=== PATIENT | male | born 1940 | race Caucasian/White ===

== ENCOUNTER 2017-04-22 05:39 | Inpatient (IN) ==
[2017-04-22] MEDS ORDERED: ALVIMOPAN 12 MG CAPSULE PO ONE (06:00)
[2017-04-22] MEDS ORDERED: SODIUM PHOSPHATE ENEMA 133 ML BOTTLE RECTAL ONE ×2 (06:00→06:27)
[2017-04-22] MEDS ORDERED: cefTRIAXone 1,000 MG VIAL ONE (06:27)
[2017-04-22] MEDS ORDERED: SODIUM CHLORIDE 0.9% 50 ML IV ONE (06:27)
[2017-04-22] MEDS ORDERED: ALVIMOPAN 12 MG CAPSULE ONE (06:34)
[2017-04-22] MEDS ORDERED: ALBUTEROL/IPRATROPIUM 3 ML NEB RESP TX STA (06:40)
[2017-04-22] MEDS ORDERED: FAMOTIDINE 20 MG TABLET PO ONE (06:47)
[2017-04-22] MEDS ORDERED: ALBUTEROL 2.5 MG/3 ML NEB RESP TX ONE (06:47)
[2017-04-22] MEDS ORDERED: DIAZEPAM 5 MG TABLET PO ONE (06:47)
[2017-04-22] MEDS: LACTATED RINGERS 1,000 ML IV SCH ×3 (07:07→12:41)
[2017-04-22 08:23] LABS: Apearance,Urine Slightly Hazy (Clear); Bacteria,Urine Occasional /HPF (Few); Bilirubin,Urine Negative (Negative); Blood, Urine Moderate mg/dL (Negative); Glucose,Urine (UA) Negative (Negative); Ketones,Urine Negative (Negative); Mucus,Urine Occasional /LPF (Occasional); Nitrite,Urine Negative (Negative); Protein,Urine Negative; RBC,Urine 59 /HPF (0-4); Squamous Epithelial Cell,Urine Occasional /HPF (0-10); Urine Color Yellow (Yellow); Urine Specific Gravity 1.015 (1.001-1.035); Urine Urobilinogen < 2.0 EU/DL (0.2-1.0); WBC,Urine 7 /HPF (0-6)
[2017-04-22] MEDS: ePHEDrine 50 MG/ML AMP IV SCH ×8 (12:25→16:58)
[2017-04-22] MEDS ORDERED: ePHEDrine 50 MG/ML AMP ONE (12:27)
[2017-04-22] MEDS ORDERED: HYDROmorphone PCA 30 MG/30 ML SYRINGE IV SCH (12:30)
[2017-04-22] MEDS ORDERED: PROPOFOL 200 MG/20 ML VIAL IV ONE (12:31)
[2017-04-22] MEDS ORDERED: DESFLURANE 1 UNIT/15 MINUTE INH ONE (12:31)
[2017-04-22] MEDS ORDERED: LACTATED RINGERS 1,000 ML IV ONE (12:32)
[2017-04-22] MEDS ORDERED: ACETAMINOPHEN 1,000 MG/100 ML VIAL IV ONE (12:32)
[2017-04-22] MEDS ORDERED: fentaNYL 100 MCG/2 ML VIAL ONE (12:32)
[2017-04-22] MEDS ORDERED: NEOSTIGMINE 10 MG/10 ML VIAL ONE (12:32)
[2017-04-22] MEDS ORDERED: ROCURONIUM 100 MG/10 ML VIAL IV ONE (12:32)
[2017-04-22] MEDS ORDERED: MIDAZOLAM 2 MG/2 ML VIAL ONE (12:32)
[2017-04-22] MEDS ORDERED: ONDANSETRON 4 MG/2 ML VIAL ONE ×2 (12:32→12:33)
[2017-04-22] MEDS ORDERED: DEXAMETHASONE 10 MG/1 ML VIAL ONE (12:32)
[2017-04-22] MEDS ORDERED: GLYCOPYRROLATE 0.4 MG/2 ML VIAL ONE (12:32)
[2017-04-22] MEDS: ONDANSETRON 4 MG/2 ML VIAL IV PRN (12:40)
[2017-04-22] MEDS: SODIUM CHLORIDE 0.9% 1,000 ML IV SCH (14:53)
[2017-04-22] MEDS: OXYBUTYNIN XL 10 MG TABLET PO SCH (20:40)
[2017-04-22] MEDS: ALVIMOPAN 12 MG CAPSULE PO SCH (20:40)
[2017-04-23] MEDS: ONDANSETRON 4 MG/2 ML VIAL IV PRN (01:48)
[2017-04-23 06:33] LABS: Basophils % 0.1 % (0.0-0.8); Hematocrit 37.5 VOL% (42.0-52.0); Hemoglobin 12.7 GM/DL (14.0-18.0); Immature Granulocytes % 0.5 %; Immature Granulocytes Absolute 0.07 #; Lymphocytes % 6.7 % (21.2-54.2); Mean Corpuscular HGB Conc 33.9 GM/DL (32-36); Mean Corpuscular Hemoglobin 33 PG (27-34); Mean Corpuscular Volume 95.9 FL (87-102); Mean Platelet Volume 10.9 FL (9.6-12.0); Monocytes % 6.3 % (1.7-12.7); Neutrophils # 13.3 10*3/uL (1.4-7.4); Neutrophils % 86.4 % (38.7-73.9); Platelet Count 210 T/CUMM (130-400); Red Blood Count 3.91 MC/CUMM (3.8-5.5); Red Cell Distribution Width 13.1 % (9.3-17.3); White Blood Count 15.3 T/CUMM (4-12)
[2017-04-23 07:12] LABS: Calcium 8.3 MG/DL (8.5-10.1); Osmolality,Calculated 278.5 MOS/KG (273-304); Potassium 4.7 MMOL/L (3.5-5.1)
[2017-04-23] MEDS: ALVIMOPAN 12 MG CAPSULE PO SCH ×2 (08:37→20:34)
[2017-04-23] MEDS: OXYBUTYNIN XL 10 MG TABLET PO SCH (08:37)
[2017-04-23] MEDS: SODIUM CHLORIDE 0.9% 1,000 ML IV SCH (08:38)
[2017-04-23] MEDS ORDERED: MAGNESIUM HYDROXIDE SUSP 30 ML UDCUP PO PRN (11:01)
[2017-04-23] MEDS ORDERED: ROSUVASTATIN 10 MG TABLET PO SCH (11:30)
[2017-04-23] MEDS: FOLIC ACID 0.4 MG TABLET PO SCH (11:36)
[2017-04-23] MEDS: amLODIPine 10 MG TABLET PO SCH (11:36)
[2017-04-23] MEDS: MULTIVITAMIN (CENTRUM) TABLET PO SCH (11:37)
[2017-04-23] MEDS: oxyCODONE/ACETAMINOPHEN 5-325 MG TABLET PO PRN ×2 (15:58→20:34)
[2017-04-23] MEDS: MEPERIDINE 50 MG/1 ML VIAL IM PRN (23:50)
[2017-04-24] MEDS ORDERED: GLYCERIN ADULT SUPP RECTAL ONE (07:45)
[2017-04-24] MEDS: MEPERIDINE 50 MG/1 ML VIAL IM PRN ×4 (08:00→20:30)
[2017-04-24] MEDS: ALVIMOPAN 12 MG CAPSULE PO SCH ×2 (09:40→20:30)
[2017-04-24] MEDS: MULTIVITAMIN (CENTRUM) TABLET PO SCH (09:40)
[2017-04-24] MEDS: ROSUVASTATIN 20 MG TABLET PO SCH (09:40)
[2017-04-24] MEDS: OXYBUTYNIN XL 10 MG TABLET PO SCH (09:40)
[2017-04-24] MEDS: FOLIC ACID 0.4 MG TABLET PO SCH (09:40)
[2017-04-24] MEDS: oxyCODONE/ACETAMINOPHEN 5-325 MG TABLET PO PRN ×2 (09:40→22:36)
[2017-04-24] MEDS: amLODIPine 10 MG TABLET PO SCH (09:43)
[2017-04-25] MEDS: MEPERIDINE 50 MG/1 ML VIAL IM PRN (00:37)
[2017-04-25 05:57] LABS: Basophils % 0.3 % (0.0-0.8); Eosinophils # 0.3 10*3/uL (0.0-0.87); Eosinophils % 2.3 % (0.00-10.9); Hemoglobin 12.9 GM/DL (14.0-18.0); Immature Granulocytes % 0.3 %; Immature Granulocytes Absolute 0.04 #; Lymphocytes # 1.4 10*3/uL (1.4-4.0); Lymphocytes % 11.6 % (21.2-54.2); Mean Corpuscular HGB Conc 34.9 GM/DL (32-36); Mean Corpuscular Hemoglobin 33 PG (27-34); Mean Corpuscular Volume 94.9 FL (87-102); Monocytes # 1.2 10*3/uL (0.11-0.8); Monocytes % 9.5 % (1.7-12.7); Neutrophils # 9.4 10*3/uL (1.4-7.4); Platelet Count 180 T/CUMM (130-400); Red Cell Distribution Width 13.1 % (9.3-17.3); White Blood Count 12.4 T/CUMM (4-12)
[2017-04-25 06:30] LABS: Calcium 8.8 MG/DL (8.5-10.1); Magnesium 2.5 MG/DL (1.8-2.4); Osmolality,Calculated 272.1 MOS/KG (273-304); Potassium 4.4 MMOL/L (3.5-5.1)
[2017-04-25] MEDS: oxyCODONE/ACETAMINOPHEN 5-325 MG TABLET PO PRN ×2 (06:37→10:36)
[2017-04-25] MEDS: ALVIMOPAN 12 MG CAPSULE PO SCH (09:42)
[2017-04-25] MEDS: OXYBUTYNIN XL 10 MG TABLET PO SCH (09:42)
[2017-04-25] MEDS: ROSUVASTATIN 20 MG TABLET PO SCH (09:42)
[2017-04-25] MEDS: amLODIPine 10 MG TABLET PO SCH (09:42)
[2017-04-25] MEDS: MULTIVITAMIN (CENTRUM) TABLET PO SCH (09:42)
[2017-04-25] MEDS: FOLIC ACID 0.4 MG TABLET PO SCH (09:42)
[2017-04-25 12:16] VITALS: BP 120/78
== END 2017-04-25 12:40 | disposition home or self-care (01) | DRG 707 ==
LOC: N.OR 05:39 → N.SDSINP 05:40 → N.5E 09:30
PROVIDERS: ADMIT Urology; ATTEND Urology

== ENCOUNTER 2018-09-12 10:19 | Inpatient (IN) ==
[2018-09-12 11:40] LABS: Basophils # 0.1 10*3/uL (0.0-0.2); Basophils % 0.7 % (0.0-0.8); Eosinophils # 0.8 10*3/uL (0.0-0.87); Hematocrit 39.3 VOL% (42.0-52.0); Hemoglobin 12.6 GM/DL (14.0-18.0); Immature Granulocytes % 0.4 %; Immature Granulocytes Absolute 0.04 #; Lymphocytes # 0.7 10*3/uL (1.4-4.0); Lymphocytes % 5.8 % (21.2-54.2); Mean Corpuscular HGB Conc 32.1 GM/DL (32-36); Mean Corpuscular Volume 94.5 FL (87-102); Mean Platelet Volume 9.3 FL (9.6-12.0); Monocytes % 8.5 % (1.7-12.7); Neutrophils % 77.6 % (38.7-73.9); Platelet Count 371 T/CUMM (130-400); Red Blood Count 4.16 MC/CUMM (3.8-5.5); Red Cell Distribution Width 13.1 % (9.3-17.3); White Blood Count 11.2 T/CUMM (4-12)
[2018-09-12 11:46] LABS: PT Patient Result 10.7 SECS; Partial Thromboplastin Time 35.1 SECS (0-40)
[2018-09-12 11:56] LABS: Alanine Aminotransferase 13 U/L (16-61); Alkaline Phosphatase 158 U/L (45-117); Aspartate Amino Transferase 19 U/L (0-37); Blood Urea Nitrogen 26 MG/DL (7-18); Calcium 8.3 MG/DL (8.5-10.1); Glucose 111 MG/DL (74-106); Total Protein 7.2 G/DL (6.4-8.3); Troponin I < 0.015 NG/ML (0.00-0.045)
[2018-09-12] MEDS ORDERED: methylPREDNISolone SOD SUC 125 MG/2 ML VIAL IV STA (12:33)
[2018-09-12] MEDS ORDERED: ALBUTEROL/IPRATROPIUM 3 ML NEB RESP TX STA (12:33)
[2018-09-12 14:35] LABS: Thyroid Stimulating Hormone 3.7 uIU/ml (0.358-3.74)
[2018-09-12 14:49] LABS: Risk Ratio 4.38; VLDL CHOLESTEROL 18.6 MG/DL
[2018-09-12] MEDS: ENOXAPARIN 40 MG/0.4 ML SYRINGE SUBCUT SCH (21:28)
[2018-09-13 04:39] LABS: Basophils % 0.1 % (0.0-0.8); Hematocrit 36.4 VOL% (42.0-52.0); Hemoglobin 11.9 GM/DL (14.0-18.0); Immature Granulocytes % 0.3 %; Immature Granulocytes Absolute 0.03 #; Lymphocytes # 0.5 10*3/uL (1.4-4.0); Lymphocytes % 4.9 % (21.2-54.2); Mean Corpuscular HGB Conc 32.7 GM/DL (32-36); Mean Corpuscular Volume 91.7 FL (87-102); Mean Platelet Volume 9.5 FL (9.6-12.0); Monocytes % 1.3 % (1.7-12.7); Neutrophils % 93.4 % (38.7-73.9); Platelet Count 394 T/CUMM (130-400); Red Blood Count 3.97 MC/CUMM (3.8-5.5); Red Cell Distribution Width 12.8 % (9.3-17.3)
[2018-09-13 05:06] LABS: Albumin 1.7 G/DL (3.4-5.0); Bilirubin,Total 0.6 MG/DL (0.2-1.0); Calcium 8.6 MG/DL (8.5-10.1); Osmolality,Calculated 277.1 MOS/KG (273-304); Total Protein 6.9 G/DL (6.4-8.3)
[2018-09-13 05:51] LABS: Lymphocytes 1 % (20-55); Platelet Estimate Normal; Segmented Neutrophils 99 % (50-85); Total Cells Counted 100
[2018-09-13] MEDS: FOLIC ACID 0.4 MG TABLET PO SCH (09:10)
[2018-09-13] MEDS: ROSUVASTATIN 20 MG TABLET PO SCH (09:11)
[2018-09-13] MEDS: amLODIPine 10 MG TABLET PO SCH (09:11)
[2018-09-13] MEDS: PANTOPRAZOLE 40 MG TABLET PO SCH (09:11)
[2018-09-13] MEDS: ASPIRIN EC 81 MG TABLET PO SCH (09:11)
[2018-09-13] MEDS: methylPREDNISolone SOD SUC 40 MG/1 ML VIAL IV SCH ×2 (12:09→21:39)
[2018-09-13] MEDS: MEROPENEM 1,000 MG in SODIUM CHLORIDE 0.9% 100 ML IV SCH ×3 (12:14→20:31)
[2018-09-13] MEDS: CLINDAMYCIN INJ 300 MG in PREMIX 1 EACH IV SCH ×3 (12:59→21:44)
[2018-09-13] MEDS: DOCUSATE SODIUM 100 MG CAPSULE PO PRN (17:55)
[2018-09-13] MEDS: POLYETHYLENE GLYCOL POWDER 17 GM PACK PO PRN (20:28)
[2018-09-13] MEDS: ENOXAPARIN 40 MG/0.4 ML SYRINGE SUBCUT SCH (20:29)
[2018-09-14 04:53] LABS: Basophils % 0.1 % (0.0-0.8); Hemoglobin 10.4 GM/DL (14.0-18.0); Immature Granulocytes % 0.6 %; Immature Granulocytes Absolute 0.09 #; Lymphocytes # 0.5 10*3/uL (1.4-4.0); Lymphocytes % 3.2 % (21.2-54.2); Mean Corpuscular HGB Conc 32.5 GM/DL (32-36); Mean Corpuscular Volume 92.5 FL (87-102); Mean Platelet Volume 9.8 FL (9.6-12.0); Monocytes % 2.1 % (1.7-12.7); Platelet Count 386 T/CUMM (130-400); Red Blood Count 3.46 MC/CUMM (3.8-5.5); White Blood Count 16.1 T/CUMM (4-12)
[2018-09-14 05:00] LABS: Albumin 1.8 G/DL (3.4-5.0); Bilirubin,Total 0.8 MG/DL (0.2-1.0); Total Protein 6.2 G/DL (6.4-8.3)
[2018-09-14 05:19] LABS: Band Neutrophils 1 % (0-10); Hypochromasia 1+; Lymphocytes 4 % (20-55); Ovalocytes Slight; Platelet Estimate Adequate; Segmented Neutrophils 93 % (50-85); Total Cells Counted 100
[2018-09-14] MEDS: MEROPENEM 1,000 MG in SODIUM CHLORIDE 0.9% 100 ML IV SCH ×3 (05:59→21:24)
[2018-09-14] MEDS: CLINDAMYCIN INJ 300 MG in PREMIX 1 EACH IV SCH ×3 (06:32→23:25)
[2018-09-14] MEDS: FOLIC ACID 0.4 MG TABLET PO SCH (09:21)
[2018-09-14] MEDS: DOCUSATE SODIUM 100 MG CAPSULE PO PRN (09:21)
[2018-09-14] MEDS: ASPIRIN EC 81 MG TABLET PO SCH (09:21)
[2018-09-14] MEDS: amLODIPine 10 MG TABLET PO SCH (09:21)
[2018-09-14] MEDS: ROSUVASTATIN 20 MG TABLET PO SCH (09:21)
[2018-09-14] MEDS: PANTOPRAZOLE 40 MG TABLET PO SCH (09:21)
[2018-09-14] MEDS: Nintedanib Esylate [Ofev] 150 MG PO SCH (09:22)
[2018-09-14] MEDS: methylPREDNISolone SOD SUC 40 MG/1 ML VIAL IV SCH (09:32)
[2018-09-14] MEDS ORDERED: SODIUM CHLORIDE 0.9% 1,000 ML IV ONE (09:50)
[2018-09-14] MEDS: ALBUTEROL/IPRATROPIUM 3 ML NEB RESP TX PRN ×2 (13:25→20:45)
[2018-09-14] MEDS ORDERED: MORPHINE 4 MG/1 ML VIAL IV ONE ×2 (21:00→23:58)
[2018-09-14] MEDS: ENOXAPARIN 40 MG/0.4 ML SYRINGE SUBCUT SCH (21:23)
[2018-09-15] MEDS: methylPREDNISolone SOD SUC 40 MG/1 ML VIAL IV SCH ×3 (00:19→22:15)
[2018-09-15] MEDS ORDERED: MORPHINE 4 MG/1 ML VIAL IV ONE (02:44)
[2018-09-15 03:30] LABS: ABG Base Excess -1.6 MMOL/L (-2.5-2.5); ABG HCO3 22.7 MMOL/L (20-26); ABG Oxygen Saturation 75.3 % (95-100); ABG PCO2 43.7 MM HG (35-48); ABG PH 7.351 (7.35-7.45); ABG PO2 43.7 MM HG (80-95); ABG TCO2 21.5 MMOL/L (23-27)
[2018-09-15] MEDS ORDERED: methylPREDNISolone SOD SUC 125 MG/2 ML VIAL IV ONE ×2 (03:42)
[2018-09-15] MEDS: MORPHINE 4 MG/1 ML VIAL IV PRN ×2 (03:50→19:46)
[2018-09-15 04:32] LABS: Albumin 1.8 G/DL (3.4-5.0); Bilirubin,Total 0.6 MG/DL (0.2-1.0); Osmolality,Calculated 277.2 MOS/KG (273-304); Total Protein 6.9 G/DL (6.4-8.3)
[2018-09-15] MEDS: ALBUTEROL/IPRATROPIUM 3 ML NEB RESP TX PRN (05:40)
[2018-09-15 05:43] LABS: Basophils % 0.2 % (0.0-0.8); Hematocrit 35.3 VOL% (42.0-52.0); Hemoglobin 11.8 GM/DL (14.0-18.0); Immature Granulocytes % 0.9 %; Immature Granulocytes Absolute 0.17 #; Lymphocytes # 0.5 10*3/uL (1.4-4.0); Lymphocytes % 2.4 % (21.2-54.2); Mean Corpuscular HGB Conc 33.4 GM/DL (32-36); Mean Corpuscular Volume 92.4 FL (87-102); Mean Platelet Volume 9.2 FL (9.6-12.0); Monocytes % 4.5 % (1.7-12.7); Platelet Count 394 T/CUMM (130-400); Red Blood Count 3.82 MC/CUMM (3.8-5.5); Red Cell Distribution Width 13.1 % (9.3-17.3); White Blood Count 18.5 T/CUMM (4-12)
[2018-09-15] MEDS: MEROPENEM 1,000 MG in SODIUM CHLORIDE 0.9% 100 ML IV SCH ×3 (05:45→20:18)
[2018-09-15 06:10] LABS: Hypochromasia 1+; Lymphocytes 2 % (20-55); Ovalocytes Slight; Platelet Estimate Adequate; Segmented Neutrophils 94 % (50-85); Total Cells Counted 100
[2018-09-15] MEDS: CLINDAMYCIN INJ 300 MG in PREMIX 1 EACH IV SCH ×3 (06:15→22:17)
[2018-09-15 08:30] LABS: ABG Base Excess 0.2 MMOL/L (-2.5-2.5); ABG HCO3 24.4 MMOL/L (20-26); ABG Oxygen Saturation 85.6 % (95-100); ABG PCO2 40.2 MM HG (35-48); ABG PH 7.401 (7.35-7.45); ABG TCO2 22.2 MMOL/L (23-27); Pt O2 Delivery Device Other
[2018-09-15] MEDS ORDERED: LIDOCAINE 100 MG/5 ML SYRINGE ONE (08:46)
[2018-09-15] MEDS ORDERED: PROPOFOL 200 MG/20 ML VIAL IV ONE (08:46)
[2018-09-15] MEDS ORDERED: fentaNYL 100 MCG/2 ML VIAL ONE (08:47)
[2018-09-15] MEDS ORDERED: VECURONIUM 10 MG VIAL IV ONE (08:48)
[2018-09-15] MEDS ORDERED: ETOMIDATE 40 MG/20 ML VIAL IV ONE (09:01)
[2018-09-15] MEDS ORDERED: ROCURONIUM 100 MG/10 ML VIAL IV ONE (09:01)
[2018-09-15] MEDS ORDERED: PROPOFOL 1,000 MG/100 ML BOTTLE IV ONE (09:02)
[2018-09-15] MEDS: PROPOFOL 1,000 MG/100 ML BOTTLE IV SCH ×4 (09:10→21:41)
[2018-09-15] MEDS ORDERED: DILTIAZEM 50 MG/10 ML VIAL IV ONE (09:24)
[2018-09-15 09:28] LABS: ABG Base Excess -2.7 MMOL/L (-2.5-2.5); ABG HCO3 21.9 MMOL/L (20-26); ABG Oxygen Saturation 86.5 % (95-100); ABG PCO2 62.7 MM HG (35-48); ABG PH 7.235 (7.35-7.45); ABG PO2 62.2 MM HG (80-95); ABG TCO2 23.7 MMOL/L (23-27); Pt O2 Delivery Device Ventilator
[2018-09-15 09:31] LABS: PT Patient Result 10.7 SECS; Partial Thromboplastin Time 31.7 SECS (0-40)
[2018-09-15] MEDS: ASPIRIN EC 81 MG TABLET PO SCH (09:57)
[2018-09-15] MEDS: PANTOPRAZOLE 40 MG TABLET PO SCH (09:57)
[2018-09-15] MEDS: dilTIAZem Drip 125 MG/125 ML PREMIX IV SCH (10:39)
[2018-09-15 10:41] LABS: ABG HCO3 19.4 MMOL/L (20-26); ABG Oxygen Saturation 90.4 % (95-100); ABG PCO2 63.1 MM HG (35-48); ABG PO2 73.6 MM HG (80-95); ABG TCO2 21.7 MMOL/L (23-27); Pt O2 Delivery Device Ventilator
[2018-09-15 10:43] LABS: ABG PH 7.185 (7.35-7.45)
[2018-09-15] MEDS ORDERED: SODIUM BICARBONATE 50 MEQ/50 ML VIAL IV ONE ×4 (10:48→11:40)
[2018-09-15] MEDS: ALBUTEROL/IPRATROPIUM 3 ML NEB RESP TX SCH ×4 (11:07→23:36)
[2018-09-15] MEDS: PANTOPRAZOLE 40 MG VIAL IV SCH (11:12)
[2018-09-15] MEDS: Nintedanib Esylate [Ofev] 150 MG PO SCH (11:19)
[2018-09-15] MEDS: ASPIRIN CHEW 81 MG TABLET PO SCH (11:19)
[2018-09-15] MEDS: ROSUVASTATIN 20 MG TABLET PO SCH (11:19)
[2018-09-15] MEDS: FOLIC ACID 0.4 MG TABLET PO SCH (11:20)
[2018-09-15] MEDS: amLODIPine 10 MG TABLET PO SCH (11:20)
[2018-09-15 11:35] LABS: ABG HCO3 23.6 MMOL/L (20-26); ABG Oxygen Saturation 97.9 % (95-100); ABG PCO2 58.1 MM HG (35-48); ABG PH 7.276 (7.35-7.45); ABG TCO2 24.3 MMOL/L (23-27); Pt O2 Delivery Device Ventilator
[2018-09-15] MEDS ORDERED: DEXTROSE 50% 25 GM/50 ML SYRINGE IV PRN (11:48)
[2018-09-15] MEDS ORDERED: GLUCAGON 1 MG VIAL IM PRN (11:48)
[2018-09-15 13:54] LABS: ABG Base Excess 4.9 MMOL/L (-2.5-2.5); ABG HCO3 28.8 MMOL/L (20-26); ABG Oxygen Saturation 99.8 % (95-100); ABG PCO2 45.3 MM HG (35-48); ABG PH 7.428 (7.35-7.45); ABG TCO2 26.8 MMOL/L (23-27); Pt O2 Delivery Device Ventilator
[2018-09-15] MEDS: SODIUM BICARB INJ 150 MEQ in STERILE WATER INJ 850 ML IV SCH (15:11)
[2018-09-15] MEDS: INSULIN REGULAR 100 UNIT/ML SUBCUT SCH ×2 (15:18→18:22)
[2018-09-15 16:58] LABS: Apearance,Urine Slightly Hazy (Clear); Bacteria,Urine Occasional /HPF (Few); Bilirubin,Urine Negative (Negative); Blood, Urine Moderate mg/dL (Negative); Glucose,Urine (UA) Negative (Negative); Hyaline Casts,Urine 4 /LPF (0-3); Ketones,Urine 5 mg/dL (Negative); Mucus,Urine Occasional /LPF (Occasional); Nitrite,Urine Negative (Negative); Protein,Urine 30 MG/DL; RBC,Urine 86 /HPF (0-4); Squamous Epithelial Cell,Urine Occasional /HPF (0-10); Urine Color Yellow (Yellow); Urine Specific Gravity 1.023 (1.001-1.035); WBC,Urine 42 /HPF (0-6)
[2018-09-15] MEDS: ENOXAPARIN 40 MG/0.4 ML SYRINGE SUBCUT SCH (20:18)
[2018-09-16] MEDS: INSULIN REGULAR 100 UNIT/ML SUBCUT SCH ×5 (00:09→23:35)
[2018-09-16] MEDS: PROPOFOL 1,000 MG/100 ML BOTTLE IV SCH ×7 (01:37→21:44)
[2018-09-16 03:35] LABS: ABG Base Excess 6.9 MMOL/L (-2.5-2.5); ABG HCO3 31.4 MMOL/L (20-26); ABG Oxygen Saturation 99.2 % (95-100); ABG PCO2 44.5 MM HG (35-48); ABG PH 7.467 (7.35-7.45); ABG PO2 431.4 MM HG (80-95); ABG TCO2 32.8 MMOL/L (23-27); Allen Test Positive; Pt O2 Delivery Device Ventilator
[2018-09-16] MEDS: ALBUTEROL/IPRATROPIUM 3 ML NEB RESP TX SCH ×5 (03:37→18:54)
[2018-09-16 04:15] LABS: Basophils % 0.2 % (0.0-0.8); Hematocrit 31.1 VOL% (42.0-52.0); Immature Granulocytes % 0.6 %; Immature Granulocytes Absolute 0.08 #; Lymphocytes # 0.6 10*3/uL (1.4-4.0); Lymphocytes % 4.9 % (21.2-54.2); Mean Corpuscular HGB Conc 32.2 GM/DL (32-36); Mean Corpuscular Volume 93.4 FL (87-102); Mean Platelet Volume 9.7 FL (9.6-12.0); Monocytes % 4.9 % (1.7-12.7); Neutrophils % 89.4 % (38.7-73.9); Platelet Count 299 T/CUMM (130-400); Red Blood Count 3.33 MC/CUMM (3.8-5.5); Red Cell Distribution Width 13.1 % (9.3-17.3); White Blood Count 12.8 T/CUMM (4-12)
[2018-09-16 04:33] LABS: Calcium 7.9 MG/DL (8.5-10.1); Osmolality,Calculated 289.5 MOS/KG (273-304)
[2018-09-16 04:38] LABS: Albumin 1.8 G/DL (3.4-5.0); Bilirubin,Direct 0.15 MG/DL (0.0-0.20); Bilirubin,Indirect 0.9 MG/DL (0.0-1.0); Total Protein 5.4 G/DL (6.4-8.3)
[2018-09-16 04:51] LABS: Band Neutrophils 1 % (0-10); Lymphocytes 5 % (20-55); Platelet Estimate Normal; Segmented Neutrophils 89 % (50-85)
[2018-09-16 04:52] LABS: Total Cells Counted 100
[2018-09-16 05:06] LABS: Prealbumin 11.6 MG/DL (20-40)
[2018-09-16] MEDS: MEROPENEM 1,000 MG in SODIUM CHLORIDE 0.9% 100 ML IV SCH (05:32)
[2018-09-16] MEDS: CLINDAMYCIN INJ 300 MG in PREMIX 1 EACH IV SCH ×3 (06:09→23:34)
[2018-09-16] MEDS: FOLIC ACID 0.4 MG TABLET PO SCH (09:12)
[2018-09-16] MEDS: amLODIPine 10 MG TABLET PO SCH (09:12)
[2018-09-16] MEDS: ROSUVASTATIN 20 MG TABLET PO SCH (09:12)
[2018-09-16] MEDS: PANTOPRAZOLE 40 MG VIAL IV SCH (09:13)
[2018-09-16] MEDS: ASPIRIN CHEW 81 MG TABLET PO SCH (09:13)
[2018-09-16] MEDS: Nintedanib Esylate [Ofev] 150 MG PO SCH (09:17)
[2018-09-16] MEDS: methylPREDNISolone SOD SUC 40 MG/1 ML VIAL IV SCH ×2 (10:24→23:34)
[2018-09-16] MEDS: ceFAZolin 1,000 MG in SYRINGE 1 EACH IV SCH ×2 (10:25→18:50)
[2018-09-16] MEDS: dilTIAZem Drip 125 MG/125 ML PREMIX IV SCH (10:44)
[2018-09-16] MEDS: SODIUM CHLORIDE 0.45% 1,000 ML IV SCH (12:25)
[2018-09-16] MEDS: SODIUM BICARB INJ 150 MEQ in STERILE WATER INJ 850 ML IV SCH (12:32)
[2018-09-16] MEDS: ENOXAPARIN 40 MG/0.4 ML SYRINGE SUBCUT SCH (20:17)
[2018-09-17] MEDS: ALBUTEROL/IPRATROPIUM 3 ML NEB RESP TX SCH ×7 (00:07→23:46)
[2018-09-17] MEDS: PROPOFOL 1,000 MG/100 ML BOTTLE IV SCH ×6 (01:07→22:24)
[2018-09-17] MEDS: ceFAZolin 1,000 MG in SYRINGE 1 EACH IV SCH ×3 (02:17→18:30)
[2018-09-17 03:11] LABS: ABG Base Excess 8.9 MMOL/L (-2.5-2.5); ABG HCO3 32.7 MMOL/L (20-26); ABG Oxygen Saturation 99.6 % (95-100); ABG PCO2 39.2 MM HG (35-48); ABG PH 7.526 (7.35-7.45); ABG TCO2 28.6 MMOL/L (23-27); Allen Test Positive; Pt O2 Delivery Device Ventilator
[2018-09-17 05:46] LABS: Basophils % 0.1 % (0.0-0.8); Eosinophils % 0.1 % (0.00-10.9); Hematocrit 29.6 VOL% (42.0-52.0); Hemoglobin 9.7 GM/DL (14.0-18.0); Immature Granulocytes % 0.8 %; Immature Granulocytes Absolute 0.12 #; Lymphocytes # 0.7 10*3/uL (1.4-4.0); Lymphocytes % 5.1 % (21.2-54.2); Mean Corpuscular HGB Conc 32.8 GM/DL (32-36); Mean Corpuscular Volume 93.1 FL (87-102); Monocytes % 4.4 % (1.7-12.7); Neutrophils % 89.5 % (38.7-73.9); Platelet Count 304 T/CUMM (130-400); Red Blood Count 3.18 MC/CUMM (3.8-5.5); Red Cell Distribution Width 13.4 % (9.3-17.3); White Blood Count 14.5 T/CUMM (4-12)
[2018-09-17 06:05] LABS: Calcium 7.9 MG/DL (8.5-10.1); Osmolality,Calculated 290.5 MOS/KG (273-304)
[2018-09-17] MEDS: INSULIN REGULAR 100 UNIT/ML SUBCUT SCH ×3 (06:13→18:10)
[2018-09-17] MEDS: CLINDAMYCIN INJ 300 MG in PREMIX 1 EACH IV SCH ×3 (06:14→22:24)
[2018-09-17] MEDS: SODIUM CHLORIDE 0.45% 1,000 ML IV SCH (09:01)
[2018-09-17] MEDS: ROSUVASTATIN 20 MG TABLET PO SCH (09:02)
[2018-09-17] MEDS: Nintedanib Esylate [Ofev] 150 MG PO SCH (09:02)
[2018-09-17] MEDS: ASPIRIN CHEW 81 MG TABLET PO SCH (09:02)
[2018-09-17] MEDS: amLODIPine 10 MG TABLET PO SCH (09:02)
[2018-09-17] MEDS: FOLIC ACID 0.4 MG TABLET PO SCH (09:02)
[2018-09-17] MEDS: PANTOPRAZOLE 40 MG VIAL IV SCH (09:04)
[2018-09-17] MEDS: dilTIAZem Drip 125 MG/125 ML PREMIX IV SCH (09:31)
[2018-09-17] MEDS ORDERED: SODIUM CHLORIDE 0.9% 1,000 ML IV PRN (10:29)
[2018-09-17] MEDS: methylPREDNISolone SOD SUC 40 MG/1 ML VIAL IV SCH ×2 (10:44→22:24)
[2018-09-17 13:00] LABS: Alanine Aminotransferase 14 U/L (16-61); Albumin 1.6 G/DL (3.4-5.0); Alkaline Phosphatase 108 U/L (45-117); Aspartate Amino Transferase 17 U/L (0-37); Bilirubin,Indirect 0.2 MG/DL (0.0-1.0); Bilirubin,Total < 0.39 MG/DL (0.2-1.0); Total Protein 5.5 G/DL (6.4-8.3)
[2018-09-17 16:30] LABS: Hematocrit 37.8 VOL% (42.0-52.0); Hemoglobin 11.8 GM/DL (14.0-18.0)
[2018-09-17] MEDS: ENOXAPARIN 40 MG/0.4 ML SYRINGE SUBCUT SCH (21:17)
[2018-09-18] MEDS: INSULIN REGULAR 100 UNIT/ML SUBCUT SCH ×5 (00:06→23:45)
[2018-09-18] MEDS: ceFAZolin 1,000 MG in SYRINGE 1 EACH IV SCH ×3 (02:04→18:20)
[2018-09-18] MEDS: PROPOFOL 1,000 MG/100 ML BOTTLE IV SCH ×6 (02:45→20:58)
[2018-09-18] MEDS: MORPHINE 4 MG/1 ML VIAL IV PRN (02:47)
[2018-09-18] MEDS: ALBUTEROL/IPRATROPIUM 3 ML NEB RESP TX SCH ×6 (03:47→23:14)
[2018-09-18 03:59] LABS: ABG Base Excess 7.1 MMOL/L (-2.5-2.5); ABG HCO3 30.9 MMOL/L (20-26); ABG PCO2 37.7 MM HG (35-48); ABG PH 7.515 (7.35-7.45); Allen Test Positive; Pt O2 Delivery Device Ventilator
[2018-09-18] MEDS: SODIUM CHLORIDE 0.45% 1,000 ML IV SCH ×2 (04:50→09:20)
[2018-09-18 05:04] LABS: Basophils % 0.1 % (0.0-0.8); Eosinophils % 0.2 % (0.00-10.9); Hematocrit 33.7 VOL% (42.0-52.0); Hemoglobin 10.8 GM/DL (14.0-18.0); Immature Granulocytes % 1.3 %; Immature Granulocytes Absolute 0.17 #; Lymphocytes # 0.9 10*3/uL (1.4-4.0); Lymphocytes % 6.9 % (21.2-54.2); Mean Corpuscular Volume 94.1 FL (87-102); Mean Platelet Volume 9.9 FL (9.6-12.0); Monocytes % 4.9 % (1.7-12.7); Neutrophils % 86.6 % (38.7-73.9); Platelet Count 316 T/CUMM (130-400); Red Blood Count 3.58 MC/CUMM (3.8-5.5); Red Cell Distribution Width 13.5 % (9.3-17.3); White Blood Count 13.2 T/CUMM (4-12)
[2018-09-18 05:18] LABS: Albumin 1.7 G/DL (3.4-5.0); Calcium 8.1 MG/DL (8.5-10.1); Osmolality,Calculated 289.4 MOS/KG (273-304); Total Protein 5.9 G/DL (6.4-8.3)
[2018-09-18] MEDS: CLINDAMYCIN INJ 300 MG in PREMIX 1 EACH IV SCH ×3 (06:00→22:18)
[2018-09-18] MEDS: ROSUVASTATIN 20 MG TABLET PO SCH (08:42)
[2018-09-18] MEDS: FOLIC ACID 0.4 MG TABLET PO SCH (08:42)
[2018-09-18] MEDS: PANTOPRAZOLE 40 MG VIAL IV SCH (08:42)
[2018-09-18] MEDS: amLODIPine 10 MG TABLET PO SCH (08:43)
[2018-09-18] MEDS: dilTIAZem Drip 125 MG/125 ML PREMIX IV SCH (08:43)
[2018-09-18] MEDS: ASPIRIN CHEW 81 MG TABLET PO SCH (08:43)
[2018-09-18] MEDS: Nintedanib Esylate [Ofev] 150 MG PO SCH (08:44)
[2018-09-18] MEDS: POLYETHYLENE GLYCOL POWDER 17 GM PACK PO PRN (08:47)
[2018-09-18] MEDS: methylPREDNISolone SOD SUC 40 MG/1 ML VIAL IV SCH ×2 (09:30→22:18)
[2018-09-18] MEDS: ENOXAPARIN 40 MG/0.4 ML SYRINGE SUBCUT SCH (20:12)
[2018-09-19] MEDS: SODIUM CHLORIDE 0.45% 1,000 ML IV SCH ×3 (01:07→21:38)
[2018-09-19] MEDS: PROPOFOL 1,000 MG/100 ML BOTTLE IV SCH ×5 (01:08→21:31)
[2018-09-19] MEDS: ceFAZolin 1,000 MG in SYRINGE 1 EACH IV SCH ×3 (02:05→17:30)
[2018-09-19] MEDS: ALBUTEROL/IPRATROPIUM 3 ML NEB RESP TX SCH ×6 (03:06→22:45)
[2018-09-19 03:42] LABS: ABG Base Excess 5.4 MMOL/L (-2.5-2.5); ABG HCO3 29.3 MMOL/L (20-26); ABG Oxygen Saturation 99.4 % (95-100); ABG PCO2 35.6 MM HG (35-48); ABG PH 7.509 (7.35-7.45); ABG TCO2 24.5 MMOL/L (23-27); Allen Test Positive; Pt O2 Delivery Device Ventilator
[2018-09-19 05:06] LABS: Basophils % 0.2 % (0.0-0.8); Eosinophils # 0.1 10*3/uL (0.0-0.87); Eosinophils % 0.5 % (0.00-10.9); Hematocrit 39.5 VOL% (42.0-52.0); Hemoglobin 12.4 GM/DL (14.0-18.0); Immature Granulocytes % 1.7 %; Immature Granulocytes Absolute 0.22 #; Lymphocytes # 0.7 10*3/uL (1.4-4.0); Lymphocytes % 5.4 % (21.2-54.2); Mean Corpuscular HGB Conc 31.4 GM/DL (32-36); Mean Corpuscular Volume 96.6 FL (87-102); Mean Platelet Volume 10.7 FL (9.6-12.0); Monocytes % 4.7 % (1.7-12.7); Neutrophils % 87.5 % (38.7-73.9); Platelet Count 223 T/CUMM (130-400); Red Blood Count 4.09 MC/CUMM (3.8-5.5); Red Cell Distribution Width 13.7 % (9.3-17.3); White Blood Count 13.3 T/CUMM (4-12)
[2018-09-19 05:34] LABS: Albumin 1.6 G/DL (3.4-5.0); Bilirubin,Total 0.4 MG/DL (0.2-1.0); Calcium 8.4 MG/DL (8.5-10.1); Osmolality,Calculated 284.7 MOS/KG (273-304); Total Protein 6.3 G/DL (6.4-8.3)
[2018-09-19] MEDS: CLINDAMYCIN INJ 300 MG in PREMIX 1 EACH IV SCH ×3 (05:42→22:23)
[2018-09-19] MEDS: INSULIN REGULAR 100 UNIT/ML SUBCUT SCH ×4 (05:46→23:29)
[2018-09-19] MEDS: FOLIC ACID 0.4 MG TABLET PO SCH (08:19)
[2018-09-19] MEDS: amLODIPine 10 MG TABLET PO SCH (08:20)
[2018-09-19] MEDS: ROSUVASTATIN 20 MG TABLET PO SCH (08:21)
[2018-09-19] MEDS: ASPIRIN CHEW 81 MG TABLET PO SCH (08:21)
[2018-09-19] MEDS: Nintedanib Esylate [Ofev] 150 MG PO SCH (08:24)
[2018-09-19] MEDS: dilTIAZem Drip 125 MG/125 ML PREMIX IV SCH (08:31)
[2018-09-19] MEDS: PANTOPRAZOLE 40 MG VIAL IV SCH (08:31)
[2018-09-19] MEDS ORDERED: SODIUM POLYSTYRENE SULFATE 15 GM/60 ML BOTTLE PO ONE (08:44)
[2018-09-19] MEDS: methylPREDNISolone SOD SUC 40 MG/1 ML VIAL IV SCH ×2 (09:36→22:00)
[2018-09-19] MEDS ORDERED: MINERAL OIL/PETROLATUM OPH OINT 3.5 GM TUBE BOTH EYES PRN (13:53)
[2018-09-19] MEDS: ENOXAPARIN 40 MG/0.4 ML SYRINGE SUBCUT SCH (20:23)
[2018-09-20] MEDS: SODIUM CHLORIDE 0.45% 1,000 ML IV SCH ×3 (01:22→20:58)
[2018-09-20] MEDS: PROPOFOL 1,000 MG/100 ML BOTTLE IV SCH ×5 (01:45→20:03)
[2018-09-20] MEDS: ALBUTEROL/IPRATROPIUM 3 ML NEB RESP TX SCH ×6 (02:39→23:17)
[2018-09-20] MEDS: ceFAZolin 1,000 MG in SYRINGE 1 EACH IV SCH ×3 (03:25→18:31)
[2018-09-20 04:11] LABS: Allen Test Positive; Pt O2 Delivery Device Ventilator
[2018-09-20 04:12] LABS: ABG Base Excess 5.1 MMOL/L (-2.5-2.5); ABG Oxygen Saturation 99.3 % (95-100); ABG PCO2 40.5 MM HG (35-48); ABG PH 7.466 (7.35-7.45); ABG TCO2 25.3 MMOL/L (23-27)
[2018-09-20 04:59] LABS: Basophils % 0.1 % (0.0-0.8); Eosinophils # 0.3 10*3/uL (0.0-0.87); Eosinophils % 1.3 % (0.00-10.9); Hematocrit 44.3 VOL% (42.0-52.0); Hemoglobin 14.1 GM/DL (14.0-18.0); Immature Granulocytes Absolute 0.19 #; Lymphocytes # 0.9 10*3/uL (1.4-4.0); Lymphocytes % 4.8 % (21.2-54.2); Mean Corpuscular HGB Conc 31.8 GM/DL (32-36); Mean Corpuscular Volume 96.3 FL (87-102); Mean Platelet Volume 11.1 FL (9.6-12.0); Monocytes % 5.1 % (1.7-12.7); Neutrophils % 87.7 % (38.7-73.9); Platelet Count 201 T/CUMM (130-400); Red Cell Distribution Width 13.8 % (9.3-17.3); White Blood Count 18.7 T/CUMM (4-12)
[2018-09-20 05:09] LABS: Hypochromasia 1+; Lymphocytes 4 % (20-55); Ovalocytes Slight; Platelet Estimate Adequate; Segmented Neutrophils 91 % (50-85); Total Cells Counted 100
[2018-09-20] MEDS: INSULIN REGULAR 100 UNIT/ML SUBCUT SCH ×4 (05:26→23:20)
[2018-09-20] MEDS: CLINDAMYCIN INJ 300 MG in PREMIX 1 EACH IV SCH ×3 (05:34→22:07)
[2018-09-20 06:59] LABS: Albumin 1.8 G/DL (3.4-5.0); Bilirubin,Total 0.4 MG/DL (0.2-1.0); Osmolality,Calculated 285.5 MOS/KG (273-304)
[2018-09-20] MEDS: PANTOPRAZOLE 40 MG VIAL IV SCH (08:50)
[2018-09-20] MEDS: FOLIC ACID 0.4 MG TABLET PO SCH (08:54)
[2018-09-20] MEDS: Nintedanib Esylate [Ofev] 150 MG PO SCH (08:54)
[2018-09-20] MEDS: ROSUVASTATIN 20 MG TABLET PO SCH (08:54)
[2018-09-20] MEDS: amLODIPine 10 MG TABLET PO SCH (08:54)
[2018-09-20] MEDS: ASPIRIN CHEW 81 MG TABLET PO SCH (08:54)
[2018-09-20] MEDS: dilTIAZem Drip 125 MG/125 ML PREMIX IV SCH (10:40)
[2018-09-20] MEDS: methylPREDNISolone SOD SUC 40 MG/1 ML VIAL IV SCH ×2 (10:52→22:03)
[2018-09-20] MEDS: ENOXAPARIN 40 MG/0.4 ML SYRINGE SUBCUT SCH (20:56)
[2018-09-21] MEDS: PROPOFOL 1,000 MG/100 ML BOTTLE IV SCH ×6 (00:06→19:51)
[2018-09-21] MEDS: ceFAZolin 1,000 MG in SYRINGE 1 EACH IV SCH ×3 (02:00→18:01)
[2018-09-21] MEDS: ALBUTEROL/IPRATROPIUM 3 ML NEB RESP TX SCH ×6 (03:23→22:52)
[2018-09-21 03:35] LABS: ABG Base Excess 4.5 MMOL/L (-2.5-2.5); ABG HCO3 28.5 MMOL/L (20-26); ABG Oxygen Saturation 99.5 % (95-100); ABG PCO2 38.1 MM HG (35-48); ABG PH 7.478 (7.35-7.45); ABG TCO2 24.3 MMOL/L (23-27)
[2018-09-21 05:20] LABS: Basophils % 0.1 % (0.0-0.8); Eosinophils # 0.1 10*3/uL (0.0-0.87); Eosinophils % 0.8 % (0.00-10.9); Hematocrit 40.6 VOL% (42.0-52.0); Hemoglobin 12.9 GM/DL (14.0-18.0); Immature Granulocytes % 1.1 %; Immature Granulocytes Absolute 0.14 #; Lymphocytes # 0.8 10*3/uL (1.4-4.0); Lymphocytes % 5.8 % (21.2-54.2); Mean Corpuscular HGB Conc 31.8 GM/DL (32-36); Mean Corpuscular Volume 95.5 FL (87-102); Mean Platelet Volume 10.1 FL (9.6-12.0); Monocytes % 4.4 % (1.7-12.7); Neutrophils % 87.8 % (38.7-73.9); Platelet Count 301 T/CUMM (130-400); Red Blood Count 4.25 MC/CUMM (3.8-5.5); Red Cell Distribution Width 13.4 % (9.3-17.3); White Blood Count 13.3 T/CUMM (4-12)
[2018-09-21 05:31] LABS: Albumin 1.9 G/DL (3.4-5.0); Bilirubin,Total 0.4 MG/DL (0.2-1.0); Calcium 8.3 MG/DL (8.5-10.1); Osmolality,Calculated 288.4 MOS/KG (273-304); Total Protein 6.4 G/DL (6.4-8.3)
[2018-09-21] MEDS: INSULIN REGULAR 100 UNIT/ML SUBCUT SCH ×3 (05:50→18:16)
[2018-09-21] MEDS: CLINDAMYCIN INJ 300 MG in PREMIX 1 EACH IV SCH (05:50)
[2018-09-21] MEDS: DOCUSATE SODIUM 100 MG CAPSULE PO PRN (09:11)
[2018-09-21] MEDS: ROSUVASTATIN 20 MG TABLET PO SCH (09:11)
[2018-09-21] MEDS: amLODIPine 10 MG TABLET PO SCH (09:11)
[2018-09-21] MEDS: FOLIC ACID 0.4 MG TABLET PO SCH (09:11)
[2018-09-21] MEDS: Nintedanib Esylate [Ofev] 150 MG PO SCH (09:11)
[2018-09-21] MEDS: ASPIRIN CHEW 81 MG TABLET PO SCH (09:11)
[2018-09-21] MEDS: PANTOPRAZOLE 40 MG VIAL IV SCH (09:12)
[2018-09-21] MEDS: dilTIAZem Drip 125 MG/125 ML PREMIX IV SCH (09:31)
[2018-09-21] MEDS: methylPREDNISolone SOD SUC 40 MG/1 ML VIAL IV SCH ×2 (09:32→22:00)
[2018-09-21] MEDS: SODIUM CHLORIDE 0.45% 1,000 ML IV SCH (15:39)
[2018-09-21] MEDS: ENOXAPARIN 40 MG/0.4 ML SYRINGE SUBCUT SCH (20:12)
[2018-09-22] MEDS: INSULIN REGULAR 100 UNIT/ML SUBCUT SCH ×5 (00:08→23:35)
[2018-09-22] MEDS: PROPOFOL 1,000 MG/100 ML BOTTLE IV SCH ×3 (01:31→09:25)
[2018-09-22] MEDS: ceFAZolin 1,000 MG in SYRINGE 1 EACH IV SCH ×3 (01:56→18:00)
[2018-09-22 03:00] LABS: ABG Base Excess 4.8 MMOL/L (-2.5-2.5); ABG HCO3 28.8 MMOL/L (20-26); ABG Oxygen Saturation 99.3 % (95-100); ABG PCO2 34.8 MM HG (35-48); ABG PH 7.509 (7.35-7.45); ABG TCO2 23.8 MMOL/L (23-27); Allen Test Positive; Pt O2 Delivery Device Ventilator
[2018-09-22] MEDS: ALBUTEROL/IPRATROPIUM 3 ML NEB RESP TX SCH ×6 (03:00→23:26)
[2018-09-22 05:24] LABS: Basophils % 0.1 % (0.0-0.8); Eosinophils # 0.1 10*3/uL (0.0-0.87); Eosinophils % 0.7 % (0.00-10.9); Hematocrit 39.7 VOL% (42.0-52.0); Hemoglobin 12.4 GM/DL (14.0-18.0); Immature Granulocytes % 0.8 %; Immature Granulocytes Absolute 0.11 #; Lymphocytes # 0.7 10*3/uL (1.4-4.0); Lymphocytes % 5.2 % (21.2-54.2); Mean Corpuscular HGB Conc 31.2 GM/DL (32-36); Mean Corpuscular Volume 95.2 FL (87-102); Mean Platelet Volume 10.5 FL (9.6-12.0); Monocytes % 4.2 % (1.7-12.7); Platelet Count 259 T/CUMM (130-400); Red Blood Count 4.17 MC/CUMM (3.8-5.5); Red Cell Distribution Width 13.2 % (9.3-17.3); White Blood Count 14.1 T/CUMM (4-12)
[2018-09-22 05:44] LABS: Albumin 1.6 G/DL (3.4-5.0); Bilirubin,Total 0.8 MG/DL (0.2-1.0); Calcium 8.3 MG/DL (8.5-10.1); Osmolality,Calculated 282.7 MOS/KG (273-304); Total Protein 5.9 G/DL (6.4-8.3)
[2018-09-22] MEDS: FOLIC ACID 0.4 MG TABLET PO SCH (08:12)
[2018-09-22] MEDS: amLODIPine 10 MG TABLET PO SCH (08:12)
[2018-09-22] MEDS: ROSUVASTATIN 20 MG TABLET PO SCH (08:12)
[2018-09-22] MEDS: Nintedanib Esylate [Ofev] 150 MG PO SCH (08:13)
[2018-09-22] MEDS: ASPIRIN CHEW 81 MG TABLET PO SCH (08:13)
[2018-09-22] MEDS: PANTOPRAZOLE 40 MG VIAL IV SCH (08:14)
[2018-09-22] MEDS: dilTIAZem Drip 125 MG/125 ML PREMIX IV SCH ×2 (09:08→16:51)
[2018-09-22] MEDS: methylPREDNISolone SOD SUC 40 MG/1 ML VIAL IV SCH ×2 (09:30→23:34)
[2018-09-22] MEDS: SODIUM CHLORIDE 0.45% 1,000 ML IV SCH (09:47)
[2018-09-22 11:17] LABS: ABG Base Excess 2.9 MMOL/L (-2.5-2.5); ABG HCO3 26.9 MMOL/L (20-26); ABG PCO2 45.5 MM HG (35-48); ABG PH 7.402 (7.35-7.45); ABG TCO2 24.5 MMOL/L (23-27); Allen Test Positive
[2018-09-22] MEDS ORDERED: CLORAZEPATE 7.5 MG TABLET PO ONE (13:00)
[2018-09-22] MEDS ORDERED: ONDANSETRON 4 MG/2 ML VIAL ONE (15:18)
[2018-09-22] MEDS ORDERED: ONDANSETRON 4 MG/2 ML VIAL IV PRN (15:21)
[2018-09-22] MEDS: ACETAMINOPHEN 325 MG TABLET PO PRN (18:50)
[2018-09-22] MEDS: ENOXAPARIN 40 MG/0.4 ML SYRINGE SUBCUT SCH (21:04)
[2018-09-22] MEDS: CLORAZEPATE 3.75 MG TABLET PO SCH (21:05)
[2018-09-23] MEDS: ceFAZolin 1,000 MG in SYRINGE 1 EACH IV SCH ×3 (02:30→18:06)
[2018-09-23] MEDS: ALBUTEROL/IPRATROPIUM 3 ML NEB RESP TX SCH ×5 (03:05→19:05)
[2018-09-23 04:11] LABS: Basophils % 0.1 % (0.0-0.8); Eosinophils # 0.5 10*3/uL (0.0-0.87); Eosinophils % 4.4 % (0.00-10.9); Hematocrit 38.6 VOL% (42.0-52.0); Hemoglobin 12.1 GM/DL (14.0-18.0); Immature Granulocytes Absolute 0.12 #; Lymphocytes # 1.8 10*3/uL (1.4-4.0); Lymphocytes % 15.6 % (21.2-54.2); Mean Corpuscular HGB Conc 31.3 GM/DL (32-36); Mean Corpuscular Volume 96.3 FL (87-102); Mean Platelet Volume 10.5 FL (9.6-12.0); Monocytes % 9.2 % (1.7-12.7); Neutrophils % 69.7 % (38.7-73.9); Platelet Count 243 T/CUMM (130-400); Red Blood Count 4.01 MC/CUMM (3.8-5.5); Red Cell Distribution Width 13.5 % (9.3-17.3); White Blood Count 11.8 T/CUMM (4-12)
[2018-09-23 04:43] LABS: Prealbumin 29.6 MG/DL (20-40)
[2018-09-23 04:51] LABS: Albumin 1.8 G/DL (3.4-5.0); Bilirubin,Total 0.8 MG/DL (0.2-1.0); Calcium 7.9 MG/DL (8.5-10.1); Total Protein 5.2 G/DL (6.4-8.3)
[2018-09-23] MEDS ORDERED: LORazepam 2 MG/1 ML VIAL IV ONE (05:00)
[2018-09-23] MEDS: SODIUM CHLORIDE 0.45% 1,000 ML IV SCH (05:05)
[2018-09-23] MEDS: INSULIN REGULAR 100 UNIT/ML SUBCUT SCH ×4 (05:06→23:26)
[2018-09-23 06:07] LABS: ABG Base Excess 3.1 MMOL/L (-2.5-2.5); ABG HCO3 28.4 MMOL/L (20-26); ABG Oxygen Saturation 91.3 % (95-100); ABG PCO2 45.8 MM HG (35-48); ABG PO2 64.5 MM HG (80-95); ABG TCO2 29.8 MMOL/L (23-27); Allen Test Positive
[2018-09-23] MEDS: ROSUVASTATIN 20 MG TABLET PO SCH (08:29)
[2018-09-23] MEDS: FOLIC ACID 0.4 MG TABLET PO SCH (08:29)
[2018-09-23] MEDS: DOCUSATE SODIUM 100 MG CAPSULE PO PRN (08:30)
[2018-09-23] MEDS: PANTOPRAZOLE 40 MG VIAL IV SCH (08:30)
[2018-09-23] MEDS: CLORAZEPATE 3.75 MG TABLET PO SCH (08:32)
[2018-09-23] MEDS: amLODIPine 10 MG TABLET PO SCH (08:32)
[2018-09-23] MEDS: ASPIRIN CHEW 81 MG TABLET PO SCH (08:33)
[2018-09-23] MEDS: Nintedanib Esylate [Ofev] 150 MG PO SCH (08:33)
[2018-09-23] MEDS ORDERED: SODIUM PHOSPHATE ENEMA 133 ML BOTTLE RECTAL ONE (08:49)
[2018-09-23] MEDS ORDERED: SODIUM PHOSPHATE ENEMA 133 ML BOTTLE RECTAL PRN (10:00)
[2018-09-23] MEDS: PROPOFOL 1,000 MG/100 ML BOTTLE IV SCH (10:12)
[2018-09-23] MEDS: dilTIAZem Drip 125 MG/125 ML PREMIX IV SCH (10:13)
[2018-09-23] MEDS: methylPREDNISolone SOD SUC 40 MG/1 ML VIAL IV SCH ×2 (10:13→23:26)
[2018-09-23] MEDS: valACYclovir 500 MG TABLET PO SCH ×2 (10:58→21:12)
[2018-09-23] MEDS: ACYCLOVIR 5% OINT 5 GM TUBE TOP SCH ×4 (10:58→21:12)
[2018-09-23] MEDS: ENOXAPARIN 100 MG/ML SYRINGE SUBCUT SCH ×2 (11:58→23:26)
[2018-09-23] MEDS: DILTIAZEM 30 MG TABLET PO SCH ×3 (12:28→21:12)
[2018-09-23] MEDS: FLECAINIDE 100 MG TABLET PO SCH ×2 (12:28→21:12)
[2018-09-23] MEDS: LORazepam 1 MG TABLET PO SCH ×2 (14:16→20:37)
[2018-09-24] MEDS: ALBUTEROL/IPRATROPIUM 3 ML NEB RESP TX SCH ×7 (00:16→23:42)
[2018-09-24] MEDS: SODIUM CHLORIDE 0.45% 1,000 ML IV SCH ×2 (00:51→20:32)
[2018-09-24 04:17] LABS: Allen Test Positive; Pt O2 Delivery Device Simple Mask
[2018-09-24 04:21] LABS: ABG HCO3 25.3 MMOL/L (20-26); ABG Oxygen Saturation 99.4 % (95-100); ABG PCO2 42.1 MM HG (35-48); ABG PH 7.399 (7.35-7.45); ABG TCO2 22.8 MMOL/L (23-27)
[2018-09-24 04:41] LABS: Basophils % 0.1 % (0.0-0.8); Eosinophils # 0.6 10*3/uL (0.0-0.87); Eosinophils % 4.2 % (0.00-10.9); Hematocrit 37.9 VOL% (42.0-52.0); Hemoglobin 11.9 GM/DL (14.0-18.0); Immature Granulocytes % 0.5 %; Immature Granulocytes Absolute 0.07 #; Lymphocytes # 1.8 10*3/uL (1.4-4.0); Lymphocytes % 13.4 % (21.2-54.2); Mean Corpuscular HGB Conc 31.4 GM/DL (32-36); Mean Corpuscular Volume 95.2 FL (87-102); Mean Platelet Volume 10.8 FL (9.6-12.0); Monocytes % 7.5 % (1.7-12.7); Neutrophils % 74.3 % (38.7-73.9); Platelet Count 220 T/CUMM (130-400); Red Blood Count 3.98 MC/CUMM (3.8-5.5); Red Cell Distribution Width 13.1 % (9.3-17.3); White Blood Count 13.6 T/CUMM (4-12)
[2018-09-24 04:53] LABS: Calcium 8.2 MG/DL (8.5-10.1); Osmolality,Calculated 284.4 MOS/KG (273-304)
[2018-09-24] MEDS: INSULIN REGULAR 100 UNIT/ML SUBCUT SCH ×2 (06:10→11:47)
[2018-09-24] MEDS: ACYCLOVIR 5% OINT 5 GM TUBE TOP SCH ×5 (06:15→23:48)
[2018-09-24] MEDS: FOLIC ACID 0.4 MG TABLET PO SCH (08:03)
[2018-09-24] MEDS: ASPIRIN CHEW 81 MG TABLET PO SCH (08:03)
[2018-09-24] MEDS: ROSUVASTATIN 20 MG TABLET PO SCH (08:03)
[2018-09-24] MEDS: PANTOPRAZOLE 40 MG VIAL IV SCH (08:03)
[2018-09-24] MEDS: FLECAINIDE 100 MG TABLET PO SCH ×2 (08:04→20:30)
[2018-09-24] MEDS: valACYclovir 500 MG TABLET PO SCH ×2 (08:04→20:30)
[2018-09-24] MEDS: amLODIPine 10 MG TABLET PO SCH (08:04)
[2018-09-24] MEDS: DILTIAZEM 30 MG TABLET PO SCH ×4 (08:04→20:30)
[2018-09-24] MEDS: LORazepam 1 MG TABLET PO SCH ×3 (08:05→20:30)
[2018-09-24] MEDS: APIXABAN 5 MG TABLET PO SCH ×2 (08:07→20:30)
[2018-09-24] MEDS: Nintedanib Esylate [Ofev] 150 MG PO SCH (08:09)
[2018-09-24] MEDS: dilTIAZem Drip 125 MG/125 ML PREMIX IV SCH (08:32)
[2018-09-24] MEDS: PROPOFOL 1,000 MG/100 ML BOTTLE IV SCH (08:32)
[2018-09-24] MEDS: methylPREDNISolone SOD SUC 40 MG/1 ML VIAL IV SCH ×2 (09:33→23:49)
[2018-09-24] MEDS: ACETAMINOPHEN 325 MG TABLET PO PRN (09:35)
[2018-09-24] MEDS ORDERED: ALUMINUM/MAGNES/SIMETH MAX STR 30 ML UDCUP PO PRN (21:02)
[2018-09-25 02:53] LABS: Allen Test Positive; Pt O2 Delivery Device Simple Mask
[2018-09-25 02:56] LABS: ABG Base Excess 3.3 MMOL/L (-2.5-2.5); ABG HCO3 27.4 MMOL/L (20-26); ABG Oxygen Saturation 98.8 % (95-100); ABG PCO2 45.2 MM HG (35-48); ABG PH 7.409 (7.35-7.45); ABG TCO2 25.4 MMOL/L (23-27)
[2018-09-25] MEDS: ALBUTEROL/IPRATROPIUM 3 ML NEB RESP TX SCH ×6 (03:49→22:54)
[2018-09-25] MEDS: ACYCLOVIR 5% OINT 5 GM TUBE TOP SCH ×5 (05:24→22:07)
[2018-09-25 05:51] LABS: Basophils % 0.1 % (0.0-0.8); Eosinophils # 0.5 10*3/uL (0.0-0.87); Eosinophils % 4.3 % (0.00-10.9); Hematocrit 35.8 VOL% (42.0-52.0); Hemoglobin 11.5 GM/DL (14.0-18.0); Immature Granulocytes % 0.5 %; Immature Granulocytes Absolute 0.06 #; Lymphocytes # 1.4 10*3/uL (1.4-4.0); Lymphocytes % 11.9 % (21.2-54.2); Mean Corpuscular HGB Conc 32.1 GM/DL (32-36); Mean Corpuscular Volume 93.2 FL (87-102); Mean Platelet Volume 11.2 FL (9.6-12.0); Monocytes % 7.8 % (1.7-12.7); Neutrophils % 75.4 % (38.7-73.9); Platelet Count 203 T/CUMM (130-400); Red Blood Count 3.84 MC/CUMM (3.8-5.5); Red Cell Distribution Width 12.9 % (9.3-17.3); White Blood Count 12.1 T/CUMM (4-12)
[2018-09-25 06:10] LABS: Osmolality,Calculated 280.7 MOS/KG (273-304)
[2018-09-25] MEDS: ASPIRIN CHEW 81 MG TABLET PO SCH (09:58)
[2018-09-25] MEDS: FLECAINIDE 100 MG TABLET PO SCH ×2 (09:58→22:07)
[2018-09-25] MEDS: valACYclovir 500 MG TABLET PO SCH ×2 (09:58→22:07)
[2018-09-25] MEDS: LORazepam 1 MG TABLET PO SCH ×3 (09:59→22:02)
[2018-09-25] MEDS: amLODIPine 10 MG TABLET PO SCH (09:59)
[2018-09-25] MEDS: ROSUVASTATIN 20 MG TABLET PO SCH (09:59)
[2018-09-25] MEDS: DILTIAZEM 30 MG TABLET PO SCH ×4 (09:59→22:07)
[2018-09-25] MEDS: FLUCONAZOLE 200 MG TABLET PO SCH (09:59)
[2018-09-25] MEDS: APIXABAN 5 MG TABLET PO SCH ×2 (10:00→22:07)
[2018-09-25] MEDS: FOLIC ACID 0.4 MG TABLET PO SCH (10:00)
[2018-09-25] MEDS: PANTOPRAZOLE 40 MG VIAL IV SCH (10:00)
[2018-09-25] MEDS: methylPREDNISolone SOD SUC 40 MG/1 ML VIAL IV SCH ×2 (10:01→22:07)
[2018-09-25] MEDS: Nintedanib Esylate [Ofev] 150 MG PO SCH (10:09)
[2018-09-25] MEDS: dilTIAZem Drip 125 MG/125 ML PREMIX IV SCH (10:10)
[2018-09-25] MEDS: PROPOFOL 1,000 MG/100 ML BOTTLE IV SCH (10:11)
[2018-09-25] MEDS: SODIUM CHLORIDE 0.45% 1,000 ML IV SCH (19:25)
[2018-09-25] MEDS: LORazepam 2 MG/1 ML VIAL IV PRN (22:25)
[2018-09-26] MEDS: ALBUTEROL/IPRATROPIUM 3 ML NEB RESP TX SCH ×6 (02:32→19:07)
[2018-09-26 04:17] LABS: Basophils % 0.2 % (0.0-0.8); Eosinophils # 0.2 10*3/uL (0.0-0.87); Eosinophils % 1.3 % (0.00-10.9); Hematocrit 38.5 VOL% (42.0-52.0); Hemoglobin 12.3 GM/DL (14.0-18.0); Immature Granulocytes % 0.5 %; Immature Granulocytes Absolute 0.06 #; Lymphocytes # 0.9 10*3/uL (1.4-4.0); Lymphocytes % 7.5 % (21.2-54.2); Mean Corpuscular HGB Conc 31.9 GM/DL (32-36); Mean Corpuscular Volume 96.7 FL (87-102); Mean Platelet Volume 12.3 FL (9.6-12.0); Monocytes % 5.4 % (1.7-12.7); Neutrophils % 85.1 % (38.7-73.9); Platelet Count 145 T/CUMM (130-400); Red Blood Count 3.98 MC/CUMM (3.8-5.5); White Blood Count 12.1 T/CUMM (4-12)
[2018-09-26 04:21] LABS: Calcium 7.4 MG/DL (8.5-10.1); Osmolality,Calculated 278.8 MOS/KG (273-304)
[2018-09-26] MEDS: ACYCLOVIR 5% OINT 5 GM TUBE TOP SCH ×5 (05:58→21:48)
[2018-09-26] MEDS: dilTIAZem Drip 125 MG/125 ML PREMIX IV SCH (09:04)
[2018-09-26] MEDS: PROPOFOL 1,000 MG/100 ML BOTTLE IV SCH (09:05)
[2018-09-26] MEDS: DILTIAZEM 30 MG TABLET PO SCH ×4 (09:41→21:45)
[2018-09-26] MEDS: ROSUVASTATIN 20 MG TABLET PO SCH (09:41)
[2018-09-26] MEDS: FOLIC ACID 0.4 MG TABLET PO SCH (09:41)
[2018-09-26] MEDS: PANTOPRAZOLE 40 MG VIAL IV SCH (09:41)
[2018-09-26] MEDS: FLUCONAZOLE 200 MG TABLET PO SCH (09:42)
[2018-09-26] MEDS: LORazepam 1 MG TABLET PO SCH ×3 (09:42→21:45)
[2018-09-26] MEDS: valACYclovir 500 MG TABLET PO SCH ×2 (09:42→21:44)
[2018-09-26] MEDS: APIXABAN 5 MG TABLET PO SCH ×2 (09:42→21:45)
[2018-09-26] MEDS: ASPIRIN CHEW 81 MG TABLET PO SCH (09:42)
[2018-09-26] MEDS: FLECAINIDE 100 MG TABLET PO SCH ×2 (09:43→21:44)
[2018-09-26] MEDS: amLODIPine 10 MG TABLET PO SCH (09:46)
[2018-09-26] MEDS: Nintedanib Esylate [Ofev] 150 MG PO SCH (09:47)
[2018-09-26] MEDS: methylPREDNISolone SOD SUC 40 MG/1 ML VIAL IV SCH ×2 (10:36→21:49)
[2018-09-26] MEDS: SODIUM CHLORIDE 0.45% 1,000 ML IV SCH (13:41)
[2018-09-26] MEDS: LORazepam 2 MG/1 ML VIAL IV PRN (23:39)
[2018-09-27] MEDS: ALBUTEROL/IPRATROPIUM 3 ML NEB RESP TX SCH ×6 (01:44→20:05)
[2018-09-27 03:11] LABS: ABG Base Excess 2.1 MMOL/L (-2.5-2.5); ABG HCO3 25.9 MMOL/L (20-26); ABG Oxygen Saturation 83.8 % (95-100); ABG PCO2 39.6 MM HG (35-48); ABG PH 7.432 (7.35-7.45); ABG PO2 46.9 MM HG (80-95); ABG TCO2 23.3 MMOL/L (23-27); Allen Test Positive; Pt O2 Delivery Device Venturi Mask
[2018-09-27 04:27] LABS: Basophils % 0.2 % (0.0-0.8); Eosinophils % 0.1 % (0.00-10.9); Hematocrit 37.5 VOL% (42.0-52.0); Immature Granulocytes % 0.6 %; Immature Granulocytes Absolute 0.09 #; Lymphocytes # 0.5 10*3/uL (1.4-4.0); Lymphocytes % 3.3 % (21.2-54.2); Mean Corpuscular Volume 94.5 FL (87-102); Monocytes % 1.5 % (1.7-12.7); Neutrophils % 94.3 % (38.7-73.9); Platelet Count 214 T/CUMM (130-400); Red Blood Count 3.97 MC/CUMM (3.8-5.5); Red Cell Distribution Width 13.2 % (9.3-17.3); White Blood Count 15.2 T/CUMM (4-12)
[2018-09-27 04:30] LABS: Osmolality,Calculated 284.5 MOS/KG (273-304)
[2018-09-27 05:06] LABS: Lymphocytes 2 % (20-55); Segmented Neutrophils 97 % (50-85); Total Cells Counted 100
[2018-09-27 05:07] LABS: ABG Base Excess 2.9 MMOL/L (-2.5-2.5); ABG HCO3 26.9 MMOL/L (20-26); ABG Oxygen Saturation 93.9 % (95-100); ABG PCO2 39.9 MM HG (35-48); ABG PH 7.441 (7.35-7.45); ABG PO2 66.6 MM HG (80-95); ABG TCO2 23.7 MMOL/L (23-27); Allen Test Positive; Pt O2 Delivery Device Other
[2018-09-27 05:07] LABS: Hypochromasia 1+; Platelet Estimate Normal
[2018-09-27] MEDS: ACYCLOVIR 5% OINT 5 GM TUBE TOP SCH ×5 (06:18→22:30)
[2018-09-27] MEDS: methylPREDNISolone SOD SUC 40 MG/1 ML VIAL IV SCH ×2 (10:19→22:30)
[2018-09-27] MEDS: ACETAMINOPHEN 325 MG TABLET PO PRN (10:20)
[2018-09-27] MEDS: PANTOPRAZOLE 40 MG VIAL IV SCH (10:20)
[2018-09-27] MEDS: ASPIRIN CHEW 81 MG TABLET PO SCH (10:22)
[2018-09-27] MEDS: APIXABAN 5 MG TABLET PO SCH ×2 (10:22→21:11)
[2018-09-27] MEDS: FOLIC ACID 0.4 MG TABLET PO SCH (10:22)
[2018-09-27] MEDS: FLUCONAZOLE 200 MG TABLET PO SCH (10:23)
[2018-09-27] MEDS: DILTIAZEM 30 MG TABLET PO SCH ×4 (10:23→21:10)
[2018-09-27] MEDS: ROSUVASTATIN 20 MG TABLET PO SCH (10:24)
[2018-09-27] MEDS: valACYclovir 500 MG TABLET PO SCH ×2 (10:24→21:10)
[2018-09-27] MEDS: FLECAINIDE 100 MG TABLET PO SCH ×2 (10:24→21:11)
[2018-09-27] MEDS: amLODIPine 10 MG TABLET PO SCH (10:24)
[2018-09-27] MEDS: Nintedanib Esylate [Ofev] 150 MG PO SCH (10:25)
[2018-09-27] MEDS: PROPOFOL 1,000 MG/100 ML BOTTLE IV SCH (10:27)
[2018-09-27] MEDS: dilTIAZem Drip 125 MG/125 ML PREMIX IV SCH (10:27)
[2018-09-27] MEDS: LORazepam 1 MG TABLET PO SCH (10:27)
[2018-09-27] MEDS: SODIUM CHLORIDE 0.45% 1,000 ML IV SCH (10:50)
[2018-09-27] MEDS: DORNASE ALFA 2.5 MG/2.5 ML VIAL RESP TX SCH ×2 (11:12→20:15)
[2018-09-27] MEDS ORDERED: MAGNESIUM SULF RIDER 4 GM in PREMIX 1 EACH IV PRN (11:35)
[2018-09-27] MEDS ORDERED: MAGNESIUM SULF RIDER 2 GM in PREMIX 1 EACH IV PRN (11:35)
[2018-09-27] MEDS: CLORAZEPATE 3.75 MG TABLET PO SCH ×2 (14:54→21:11)
[2018-09-28] MEDS: ALBUTEROL/IPRATROPIUM 3 ML NEB RESP TX SCH ×7 (00:15→23:15)
[2018-09-28] MEDS: LORazepam 2 MG/1 ML VIAL IV PRN ×2 (02:48→11:41)
[2018-09-28] MEDS ORDERED: MORPHINE 4 MG/1 ML VIAL IV ONE (02:54)
[2018-09-28 04:10] LABS: Hematocrit 35.3 VOL% (42.0-52.0); Hemoglobin 11.6 GM/DL (14.0-18.0); Immature Granulocytes % 0.7 %; Immature Granulocytes Absolute 0.14 #; Lymphocytes # 0.6 10*3/uL (1.4-4.0); Lymphocytes % 2.7 % (21.2-54.2); Mean Corpuscular HGB Conc 32.9 GM/DL (32-36); Mean Corpuscular Volume 93.1 FL (87-102); Monocytes % 2.9 % (1.7-12.7); Neutrophils % 93.7 % (38.7-73.9); Platelet Count 233 T/CUMM (130-400); Red Blood Count 3.79 MC/CUMM (3.8-5.5); Red Cell Distribution Width 13.3 % (9.3-17.3)
[2018-09-28 04:28] LABS: Calcium 8.5 MG/DL (8.5-10.1); Osmolality,Calculated 280.8 MOS/KG (273-304)
[2018-09-28 04:41] LABS: Allen Test Positive; Pt O2 Delivery Device BIPAP
[2018-09-28 04:43] LABS: ABG Base Excess 1.9 MMOL/L (-2.5-2.5); ABG Oxygen Saturation 93.7 % (95-100); ABG PCO2 35.6 MM HG (35-48); ABG PH 7.463 (7.35-7.45); ABG PO2 60.9 MM HG (80-95); ABG TCO2 22.9 MMOL/L (23-27)
[2018-09-28 06:00] LABS: Lymphocytes 2 % (20-55); Platelet Estimate Normal; Segmented Neutrophils 97 % (50-85); Total Cells Counted 100
[2018-09-28] MEDS: ACYCLOVIR 5% OINT 5 GM TUBE TOP SCH ×5 (06:15→21:27)
[2018-09-28] MEDS: SODIUM CHLORIDE 0.45% 1,000 ML IV SCH (07:08)
[2018-09-28] MEDS: DORNASE ALFA 2.5 MG/2.5 ML VIAL RESP TX SCH ×2 (07:23→19:00)
[2018-09-28] MEDS: FLECAINIDE 100 MG TABLET PO SCH ×2 (09:10→21:26)
[2018-09-28] MEDS: valACYclovir 500 MG TABLET PO SCH ×2 (09:10→21:27)
[2018-09-28] MEDS: APIXABAN 5 MG TABLET PO SCH ×2 (09:11→21:27)
[2018-09-28] MEDS: CLORAZEPATE 3.75 MG TABLET PO SCH ×3 (09:11→21:27)
[2018-09-28] MEDS: FOLIC ACID 0.4 MG TABLET PO SCH (09:11)
[2018-09-28] MEDS: ROSUVASTATIN 20 MG TABLET PO SCH (09:12)
[2018-09-28] MEDS: DILTIAZEM 30 MG TABLET PO SCH ×4 (09:12→21:24)
[2018-09-28] MEDS: FLUCONAZOLE 200 MG TABLET PO SCH (09:12)
[2018-09-28] MEDS: Nintedanib Esylate [Ofev] 150 MG PO SCH (09:13)
[2018-09-28] MEDS: PANTOPRAZOLE 40 MG VIAL IV SCH (09:13)
[2018-09-28] MEDS: ASPIRIN CHEW 81 MG TABLET PO SCH (09:13)
[2018-09-28] MEDS: methylPREDNISolone SOD SUC 40 MG/1 ML VIAL IV SCH (09:30)
[2018-09-28] MEDS ORDERED: FUROSEMIDE 20 MG/2 ML VIAL IV ONE (10:35)
[2018-09-28] MEDS ORDERED: amLODIPine 5 MG TABLET PO SCH (11:00)
[2018-09-28] MEDS ORDERED: SUCCINYLCHOLINE 200 MG/10 ML VIAL ONE (11:22)
[2018-09-28] MEDS ORDERED: ETOMIDATE 20 MG/10 ML VIAL IV ONE ×2 (11:22→12:39)
[2018-09-28] MEDS ORDERED: PROPOFOL 1,000 MG/100 ML BOTTLE IV ONE (11:29)
[2018-09-28] MEDS: PROPOFOL 1,000 MG/100 ML BOTTLE IV SCH ×3 (11:35→16:38)
[2018-09-28 11:57] LABS: ABG Base Excess -0.1 MMOL/L (-2.5-2.5); ABG Oxygen Saturation 82.6 % (95-100); ABG PCO2 55.9 MM HG (35-48); ABG PH 7.299 (7.35-7.45); ABG PO2 54.3 MM HG (80-95); ABG TCO2 24.8 MMOL/L (23-27); Allen Test Positive; Pt O2 Delivery Device Ventilator
[2018-09-28] MEDS: [UNRECOGNIZED DRUG - OTHER] IV PRN (12:27)
[2018-09-28] MEDS ORDERED: SUCCINYLCHOLINE 200 MG/10 ML VIAL IV ONE (12:39)
[2018-09-28] MEDS ORDERED: PHENYLEPHRINE DRIP 40 MG/250 ML PREMIX IV PRN (12:39)
[2018-09-28] MEDS ORDERED: SODIUM BICARBONATE 50 MEQ/50 ML VIAL IV ONE (12:39)
[2018-09-28 13:59] LABS: ABG Base Excess 5.3 MMOL/L (-2.5-2.5); ABG HCO3 29.2 MMOL/L (20-26); ABG Oxygen Saturation 97.2 % (95-100); ABG PCO2 50.5 MM HG (35-48); ABG PH 7.397 (7.35-7.45); ABG PO2 91.3 MM HG (80-95); ABG TCO2 28.3 MMOL/L (23-27); Allen Test Positive; Pt O2 Delivery Device Ventilator
[2018-09-28] MEDS: amLODIPine 10 MG TABLET PO SCH (14:09)
[2018-09-28] MEDS ORDERED: DEXTROSE 50% 25 GM/50 ML SYRINGE IV PRN (15:26)
[2018-09-28] MEDS: MEROPENEM 500 MG in SODIUM CHLORIDE 0.9% 100 ML IV SCH ×2 (16:27→23:23)
[2018-09-28] MEDS: INSULIN REGULAR 100 UNIT/ML SUBCUT SCH ×2 (18:30→23:10)
[2018-09-28] MEDS: methylPREDNISolone SOD SUC 125 MG/2 ML VIAL IV SCH (21:27)
[2018-09-29] MEDS: [UNRECOGNIZED DRUG - OTHER] IV PRN (00:14)
[2018-09-29] MEDS: ALBUTEROL/IPRATROPIUM 3 ML NEB RESP TX SCH ×6 (02:50→22:55)
[2018-09-29 03:07] LABS: ABG Base Excess 4.5 MMOL/L (-2.5-2.5); ABG HCO3 28.5 MMOL/L (20-26); ABG Oxygen Saturation 99.9 % (95-100); ABG PCO2 46.4 MM HG (35-48); ABG PH 7.415 (7.35-7.45); Allen Test Positive; Pt O2 Delivery Device Ventilator
[2018-09-29 04:20] LABS: Basophils % 0.1 % (0.0-0.8); Hematocrit 31.3 VOL% (42.0-52.0); Hemoglobin 9.9 GM/DL (14.0-18.0); Immature Granulocytes % 0.5 %; Immature Granulocytes Absolute 0.06 #; Lymphocytes # 0.4 10*3/uL (1.4-4.0); Lymphocytes % 3.6 % (21.2-54.2); Mean Corpuscular HGB Conc 31.6 GM/DL (32-36); Mean Corpuscular Volume 95.4 FL (87-102); Mean Platelet Volume 11.2 FL (9.6-12.0); Monocytes % 2.1 % (1.7-12.7); Neutrophils % 93.7 % (38.7-73.9); Platelet Count 190 T/CUMM (130-400); Red Blood Count 3.28 MC/CUMM (3.8-5.5); Red Cell Distribution Width 13.4 % (9.3-17.3); White Blood Count 11.7 T/CUMM (4-12)
[2018-09-29 04:47] LABS: Osmolality,Calculated 286.7 MOS/KG (273-304)
[2018-09-29 04:50] LABS: Prealbumin 17.1 MG/DL (20-40)
[2018-09-29 04:54] LABS: Lymphocytes 1 % (20-55); Platelet Estimate Decreased; Polychromasia Few; Segmented Neutrophils 98 % (50-85); Total Cells Counted 100
[2018-09-29] MEDS: SODIUM CHLORIDE 0.45% 1,000 ML IV SCH (05:00)
[2018-09-29] MEDS: INSULIN REGULAR 100 UNIT/ML SUBCUT SCH ×3 (06:16→18:23)
[2018-09-29] MEDS: ACYCLOVIR 5% OINT 5 GM TUBE TOP SCH ×5 (06:16→22:03)
[2018-09-29] MEDS: DORNASE ALFA 2.5 MG/2.5 ML VIAL RESP TX SCH ×2 (07:36→19:24)
[2018-09-29] MEDS: ASPIRIN CHEW 81 MG TABLET PO SCH (08:34)
[2018-09-29] MEDS: ROSUVASTATIN 20 MG TABLET PO SCH (08:34)
[2018-09-29] MEDS: MEROPENEM 500 MG in SODIUM CHLORIDE 0.9% 100 ML IV SCH ×2 (08:35→15:36)
[2018-09-29] MEDS: valACYclovir 500 MG TABLET PO SCH ×2 (08:35→22:00)
[2018-09-29] MEDS: CLORAZEPATE 3.75 MG TABLET PO SCH ×3 (08:35→22:05)
[2018-09-29] MEDS: FOLIC ACID 0.4 MG TABLET PO SCH (08:35)
[2018-09-29] MEDS: FLUCONAZOLE 200 MG TABLET PO SCH (08:35)
[2018-09-29] MEDS: APIXABAN 5 MG TABLET PO SCH ×2 (08:35→21:55)
[2018-09-29] MEDS: FLECAINIDE 100 MG TABLET PO SCH ×2 (08:36→22:02)
[2018-09-29] MEDS: PANTOPRAZOLE 40 MG VIAL IV SCH (08:36)
[2018-09-29] MEDS: methylPREDNISolone SOD SUC 125 MG/2 ML VIAL IV SCH ×2 (08:36→22:02)
[2018-09-29] MEDS: DILTIAZEM 30 MG TABLET PO SCH ×4 (08:37→22:00)
[2018-09-29] MEDS: Nintedanib Esylate [Ofev] 150 MG PO SCH (08:38)
[2018-09-29] MEDS: PROPOFOL 1,000 MG/100 ML BOTTLE IV SCH (14:51)
[2018-09-30] MEDS: MEROPENEM 500 MG in SODIUM CHLORIDE 0.9% 100 ML IV SCH ×4 (00:45→23:21)
[2018-09-30] MEDS: INSULIN REGULAR 100 UNIT/ML SUBCUT SCH ×4 (01:02→17:29)
[2018-09-30] MEDS: PROPOFOL 1,000 MG/100 ML BOTTLE IV SCH ×3 (01:35→22:59)
[2018-09-30] MEDS: ALBUTEROL/IPRATROPIUM 3 ML NEB RESP TX SCH ×5 (02:38→19:40)
[2018-09-30] MEDS: [UNRECOGNIZED DRUG - OTHER] IV PRN (02:42)
[2018-09-30 03:56] LABS: ABG Base Excess 4.1 MMOL/L (-2.5-2.5); ABG HCO3 28.1 MMOL/L (20-26); ABG Oxygen Saturation 98.5 % (95-100); ABG PCO2 53.3 MM HG (35-48); ABG PH 7.366 (7.35-7.45); ABG TCO2 27.6 MMOL/L (23-27); Allen Test Positive; Pt O2 Delivery Device Ventilator
[2018-09-30 04:21] LABS: Basophils % 0.1 % (0.0-0.8); Hematocrit 32.1 VOL% (42.0-52.0); Hemoglobin 10.2 GM/DL (14.0-18.0); Immature Granulocytes % 0.5 %; Immature Granulocytes Absolute 0.06 #; Lymphocytes # 0.3 10*3/uL (1.4-4.0); Lymphocytes % 2.3 % (21.2-54.2); Mean Corpuscular HGB Conc 31.8 GM/DL (32-36); Mean Corpuscular Volume 95.8 FL (87-102); Mean Platelet Volume 10.7 FL (9.6-12.0); Monocytes % 2.3 % (1.7-12.7); Neutrophils % 94.8 % (38.7-73.9); Platelet Count 194 T/CUMM (130-400); Red Blood Count 3.35 MC/CUMM (3.8-5.5); Red Cell Distribution Width 13.4 % (9.3-17.3)
[2018-09-30 04:28] LABS: Calcium 8.2 MG/DL (8.5-10.1); Osmolality,Calculated 289.7 MOS/KG (273-304)
[2018-09-30 04:56] LABS: Lymphocytes 1 % (20-55); Myelocytes 1 %; Segmented Neutrophils 95 % (50-85); Total Cells Counted 100
[2018-09-30 04:57] LABS: Hypochromasia 1+; Platelet Estimate Normal
[2018-09-30] MEDS: ACYCLOVIR 5% OINT 5 GM TUBE TOP SCH ×5 (06:21→22:02)
[2018-09-30] MEDS: DORNASE ALFA 2.5 MG/2.5 ML VIAL RESP TX SCH ×2 (07:29→19:40)
[2018-09-30] MEDS: FLECAINIDE 100 MG TABLET PO SCH ×2 (08:13→20:28)
[2018-09-30] MEDS: CLORAZEPATE 3.75 MG TABLET PO SCH ×3 (08:13→20:29)
[2018-09-30] MEDS: ASPIRIN CHEW 81 MG TABLET PO SCH (08:13)
[2018-09-30] MEDS: valACYclovir 500 MG TABLET PO SCH ×2 (08:13→20:28)
[2018-09-30] MEDS: ROSUVASTATIN 20 MG TABLET PO SCH (08:13)
[2018-09-30] MEDS: methylPREDNISolone SOD SUC 125 MG/2 ML VIAL IV SCH ×2 (08:14→20:28)
[2018-09-30] MEDS: FLUCONAZOLE 200 MG TABLET PO SCH (08:14)
[2018-09-30] MEDS: DILTIAZEM 30 MG TABLET PO SCH ×4 (08:14→20:28)
[2018-09-30] MEDS: FOLIC ACID 0.4 MG TABLET PO SCH (08:14)
[2018-09-30] MEDS: APIXABAN 5 MG TABLET PO SCH ×2 (08:14→20:28)
[2018-09-30] MEDS: Nintedanib Esylate [Ofev] 150 MG PO SCH (08:15)
[2018-09-30] MEDS: PANTOPRAZOLE 40 MG VIAL IV SCH (08:15)
[2018-09-30] MEDS: POLYETHYLENE GLYCOL POWDER 17 GM PACK PO PRN (23:00)
[2018-10-01] MEDS: ALBUTEROL/IPRATROPIUM 3 ML NEB RESP TX SCH ×7 (00:24→23:11)
[2018-10-01] MEDS: [UNRECOGNIZED DRUG - OTHER] IV PRN (01:56)
[2018-10-01 03:03] LABS: ABG Base Excess 4.9 MMOL/L (-2.5-2.5); ABG HCO3 28.9 MMOL/L (20-26); ABG Oxygen Saturation 99.7 % (95-100); ABG PCO2 50.2 MM HG (35-48); ABG PH 7.397 (7.35-7.45); ABG TCO2 27.5 MMOL/L (23-27); Allen Test Positive; Pt O2 Delivery Device Ventilator
[2018-10-01 05:25] LABS: Basophils % 0.1 % (0.0-0.8); Eosinophils % 0.1 % (0.00-10.9); Hematocrit 33.1 VOL% (42.0-52.0); Hemoglobin 10.8 GM/DL (14.0-18.0); Immature Granulocytes % 0.4 %; Immature Granulocytes Absolute 0.05 #; Lymphocytes # 0.3 10*3/uL (1.4-4.0); Lymphocytes % 2.1 % (21.2-54.2); Mean Corpuscular HGB Conc 32.6 GM/DL (32-36); Mean Corpuscular Volume 94.6 FL (87-102); Mean Platelet Volume 11.3 FL (9.6-12.0); Monocytes % 2.6 % (1.7-12.7); Neutrophils % 94.7 % (38.7-73.9); Platelet Count 207 T/CUMM (130-400); Red Cell Distribution Width 13.6 % (9.3-17.3); White Blood Count 14.1 T/CUMM (4-12)
[2018-10-01 05:26] LABS: Calcium 8.2 MG/DL (8.5-10.1); Osmolality,Calculated 289.5 MOS/KG (273-304)
[2018-10-01] MEDS: INSULIN REGULAR 100 UNIT/ML SUBCUT SCH ×4 (05:35→17:27)
[2018-10-01] MEDS: ACYCLOVIR 5% OINT 5 GM TUBE TOP SCH ×5 (06:06→20:30)
[2018-10-01 06:35] LABS: Band Neutrophils 1 % (0-10); Lymphocytes 2 % (20-55); Platelet Estimate Normal; Segmented Neutrophils 95 % (50-85); Total Cells Counted 100
[2018-10-01] MEDS: DORNASE ALFA 2.5 MG/2.5 ML VIAL RESP TX SCH ×2 (07:20→18:09)
[2018-10-01] MEDS: MEROPENEM 500 MG in SODIUM CHLORIDE 0.9% 100 ML IV SCH ×2 (08:13→14:31)
[2018-10-01] MEDS: ROSUVASTATIN 20 MG TABLET PO SCH (08:14)
[2018-10-01] MEDS: APIXABAN 5 MG TABLET PO SCH ×2 (08:14→20:25)
[2018-10-01] MEDS: FLUCONAZOLE 200 MG TABLET PO SCH (08:14)
[2018-10-01] MEDS: FOLIC ACID 0.4 MG TABLET PO SCH (08:14)
[2018-10-01] MEDS: ASPIRIN CHEW 81 MG TABLET PO SCH (08:15)
[2018-10-01] MEDS: valACYclovir 500 MG TABLET PO SCH ×2 (08:15→20:25)
[2018-10-01] MEDS: PANTOPRAZOLE 40 MG VIAL IV SCH (08:15)
[2018-10-01] MEDS: CLORAZEPATE 3.75 MG TABLET PO SCH ×3 (08:15→20:26)
[2018-10-01] MEDS: methylPREDNISolone SOD SUC 125 MG/2 ML VIAL IV SCH ×2 (08:16→20:25)
[2018-10-01] MEDS: Nintedanib Esylate [Ofev] 150 MG PO SCH (08:16)
[2018-10-01] MEDS: DILTIAZEM 30 MG TABLET PO SCH ×4 (08:31→20:30)
[2018-10-01] MEDS: PROPOFOL 1,000 MG/100 ML BOTTLE IV SCH ×3 (08:31→23:52)
[2018-10-01] MEDS: FLECAINIDE 100 MG TABLET PO SCH ×2 (08:33→20:25)
[2018-10-02] MEDS: INSULIN REGULAR 100 UNIT/ML SUBCUT SCH ×4 (01:14→17:12)
[2018-10-02] MEDS: MEROPENEM 500 MG in SODIUM CHLORIDE 0.9% 100 ML IV SCH ×3 (01:14→14:29)
[2018-10-02] MEDS: ALBUTEROL/IPRATROPIUM 3 ML NEB RESP TX SCH ×5 (03:40→19:40)
[2018-10-02 05:00] LABS: ABG Base Excess 5.1 MMOL/L (-2.5-2.5); ABG Oxygen Saturation 96.3 % (95-100); ABG PCO2 50.6 MM HG (35-48); ABG PH 7.398 (7.35-7.45); ABG PO2 82.1 MM HG (80-95); ABG TCO2 27.6 MMOL/L (23-27); Allen Test Positive; Pt O2 Delivery Device Ventilator
[2018-10-02] MEDS: PROPOFOL 1,000 MG/100 ML BOTTLE IV SCH ×4 (05:26→20:40)
[2018-10-02] MEDS: ACYCLOVIR 5% OINT 5 GM TUBE TOP SCH ×5 (06:16→22:07)
[2018-10-02] MEDS: [UNRECOGNIZED DRUG - OTHER] IV PRN (06:17)
[2018-10-02] MEDS: DORNASE ALFA 2.5 MG/2.5 ML VIAL RESP TX SCH ×2 (07:52→19:40)
[2018-10-02] MEDS: valACYclovir 500 MG TABLET PO SCH ×2 (08:31→20:30)
[2018-10-02] MEDS: APIXABAN 5 MG TABLET PO SCH ×2 (08:31→20:30)
[2018-10-02] MEDS: DILTIAZEM 30 MG TABLET PO SCH ×4 (08:31→20:29)
[2018-10-02] MEDS: ASPIRIN CHEW 81 MG TABLET PO SCH (08:31)
[2018-10-02] MEDS: FOLIC ACID 0.4 MG TABLET PO SCH (08:32)
[2018-10-02] MEDS: CLORAZEPATE 3.75 MG TABLET PO SCH ×3 (08:32→20:31)
[2018-10-02] MEDS: Nintedanib Esylate [Ofev] 150 MG PO SCH (08:32)
[2018-10-02] MEDS: ROSUVASTATIN 20 MG TABLET PO SCH (08:32)
[2018-10-02] MEDS: PANTOPRAZOLE 40 MG VIAL IV SCH (08:32)
[2018-10-02] MEDS: FLUCONAZOLE 200 MG TABLET PO SCH (08:32)
[2018-10-02] MEDS: methylPREDNISolone SOD SUC 125 MG/2 ML VIAL IV SCH ×2 (08:33→20:31)
[2018-10-02] MEDS: FLECAINIDE 100 MG TABLET PO SCH ×2 (08:40→20:30)
[2018-10-02] MEDS: POLYETHYLENE GLYCOL POWDER 17 GM PACK PO PRN (13:39)
[2018-10-03] MEDS: MEROPENEM 500 MG in SODIUM CHLORIDE 0.9% 100 ML IV SCH ×4 (00:07→23:21)
[2018-10-03] MEDS: ALBUTEROL/IPRATROPIUM 3 ML NEB RESP TX SCH ×7 (00:35→23:08)
[2018-10-03] MEDS: INSULIN REGULAR 100 UNIT/ML SUBCUT SCH ×5 (01:15→23:22)
[2018-10-03 04:28] LABS: ABG Base Excess 5.3 MMOL/L (-2.5-2.5); ABG HCO3 31.3 MMOL/L (20-26); ABG Oxygen Saturation 97.2 % (95-100); ABG PH 7.397 (7.35-7.45); ABG PO2 98.9 MM HG (80-95); ABG TCO2 32.9 MMOL/L (23-27); Allen Test Positive; Pt O2 Delivery Device Ventilator
[2018-10-03 04:54] LABS: Basophils % 0.1 % (0.0-0.8); Hematocrit 34.1 VOL% (42.0-52.0); Immature Granulocytes % 0.4 %; Immature Granulocytes Absolute 0.07 #; Lymphocytes # 0.2 10*3/uL (1.4-4.0); Lymphocytes % 1.4 % (21.2-54.2); Mean Corpuscular HGB Conc 32.3 GM/DL (32-36); Mean Corpuscular Volume 94.2 FL (87-102); Mean Platelet Volume 11.4 FL (9.6-12.0); Monocytes % 1.5 % (1.7-12.7); Neutrophils % 96.6 % (38.7-73.9); Platelet Count 164 T/CUMM (130-400); Red Blood Count 3.62 MC/CUMM (3.8-5.5); Red Cell Distribution Width 14.3 % (9.3-17.3); White Blood Count 17.2 T/CUMM (4-12)
[2018-10-03 05:23] LABS: Calcium 7.8 MG/DL (8.5-10.1); Osmolality,Calculated 294.3 MOS/KG (273-304)
[2018-10-03] MEDS: ACYCLOVIR 5% OINT 5 GM TUBE TOP SCH ×5 (05:25→21:55)
[2018-10-03 05:50] LABS: Anisocytosis 1+; Band Neutrophils 7 % (0-10); Lymphocytes 1 % (20-55); Platelet Estimate Adequate; Segmented Neutrophils 92 % (50-85); Total Cells Counted 100
[2018-10-03] MEDS: DORNASE ALFA 2.5 MG/2.5 ML VIAL RESP TX SCH ×2 (07:21→19:26)
[2018-10-03] MEDS: methylPREDNISolone SOD SUC 125 MG/2 ML VIAL IV SCH ×2 (08:13→20:01)
[2018-10-03] MEDS: CLORAZEPATE 3.75 MG TABLET PO SCH ×3 (08:13→20:00)
[2018-10-03] MEDS: valACYclovir 500 MG TABLET PO SCH ×2 (08:13→20:00)
[2018-10-03] MEDS: FLECAINIDE 100 MG TABLET PO SCH ×2 (08:14→20:00)
[2018-10-03] MEDS: APIXABAN 5 MG TABLET PO SCH ×2 (08:14→20:00)
[2018-10-03] MEDS: FOLIC ACID 0.4 MG TABLET PO SCH (08:14)
[2018-10-03] MEDS: FLUCONAZOLE 200 MG TABLET PO SCH (08:14)
[2018-10-03] MEDS: ROSUVASTATIN 20 MG TABLET PO SCH (08:14)
[2018-10-03] MEDS: PANTOPRAZOLE 40 MG VIAL IV SCH (08:14)
[2018-10-03] MEDS: ASPIRIN CHEW 81 MG TABLET PO SCH (08:14)
[2018-10-03] MEDS: DILTIAZEM 30 MG TABLET PO SCH ×4 (08:14→20:12)
[2018-10-03] MEDS: Nintedanib Esylate [Ofev] 150 MG PO SCH (08:15)
[2018-10-03] MEDS: [UNRECOGNIZED DRUG - OTHER] IV PRN (10:27)
[2018-10-03] MEDS: METOCLOPRAMIDE 10 MG/2 ML VIAL IV SCH ×3 (12:24→23:22)
[2018-10-03] MEDS: PROPOFOL 1,000 MG/100 ML BOTTLE IV SCH ×2 (12:26→23:20)
[2018-10-04] MEDS: ALBUTEROL/IPRATROPIUM 3 ML NEB RESP TX SCH ×5 (02:51→19:48)
[2018-10-04 04:34] LABS: ABG Base Excess 6.4 MMOL/L (-2.5-2.5); ABG HCO3 30.2 MMOL/L (20-26); ABG Oxygen Saturation 99.1 % (95-100); ABG PCO2 52.2 MM HG (35-48); ABG PH 7.408 (7.35-7.45); ABG TCO2 27.5 MMOL/L (23-27); Allen Test Positive; Pt O2 Delivery Device Ventilator
[2018-10-04 06:07] LABS: Eosinophils % 0.1 % (0.00-10.9); Hematocrit 33.2 VOL% (42.0-52.0); Hemoglobin 10.8 GM/DL (14.0-18.0); Immature Granulocytes % 0.5 %; Immature Granulocytes Absolute 0.06 #; Lymphocytes # 0.2 10*3/uL (1.4-4.0); Lymphocytes % 2.2 % (21.2-54.2); Mean Corpuscular HGB Conc 32.5 GM/DL (32-36); Mean Corpuscular Volume 95.1 FL (87-102); Mean Platelet Volume 11.8 FL (9.6-12.0); Monocytes % 2.2 % (1.7-12.7); Platelet Count 136 T/CUMM (130-400); Red Blood Count 3.49 MC/CUMM (3.8-5.5); Red Cell Distribution Width 14.4 % (9.3-17.3); White Blood Count 11.1 T/CUMM (4-12)
[2018-10-04] MEDS: METOCLOPRAMIDE 10 MG/2 ML VIAL IV SCH ×3 (06:20→18:16)
[2018-10-04] MEDS: ACYCLOVIR 5% OINT 5 GM TUBE TOP SCH ×5 (06:20→21:25)
[2018-10-04] MEDS: INSULIN REGULAR 100 UNIT/ML SUBCUT SCH ×3 (06:20→18:17)
[2018-10-04 06:35] LABS: Calcium 8.1 MG/DL (8.5-10.1); Osmolality,Calculated 294.4 MOS/KG (273-304)
[2018-10-04 06:40] LABS: Prealbumin 15.1 MG/DL (20-40)
[2018-10-04 07:04] LABS: Hypochromasia 1+; Lymphocytes 1 % (20-55); Segmented Neutrophils 97 % (50-85); Target Cells Few; Total Cells Counted 100
[2018-10-04 07:05] LABS: Platelet Estimate Normal
[2018-10-04] MEDS: PROPOFOL 1,000 MG/100 ML BOTTLE IV SCH ×2 (07:18→18:52)
[2018-10-04] MEDS: DORNASE ALFA 2.5 MG/2.5 ML VIAL RESP TX SCH ×2 (08:00→19:48)
[2018-10-04] MEDS: MEROPENEM 500 MG in SODIUM CHLORIDE 0.9% 100 ML IV SCH ×2 (09:26→14:42)
[2018-10-04] MEDS: methylPREDNISolone SOD SUC 125 MG/2 ML VIAL IV SCH ×2 (09:34→21:30)
[2018-10-04] MEDS: PANTOPRAZOLE 40 MG VIAL IV SCH (09:35)
[2018-10-04] MEDS: DILTIAZEM 30 MG TABLET PO SCH ×4 (09:40→21:20)
[2018-10-04] MEDS: valACYclovir 500 MG TABLET PO SCH ×2 (09:41→21:20)
[2018-10-04] MEDS: CLORAZEPATE 3.75 MG TABLET PO SCH ×3 (09:41→21:20)
[2018-10-04] MEDS: FOLIC ACID 0.4 MG TABLET PO SCH (09:41)
[2018-10-04] MEDS: APIXABAN 5 MG TABLET PO SCH ×2 (09:41→21:20)
[2018-10-04] MEDS: ROSUVASTATIN 20 MG TABLET PO SCH (09:41)
[2018-10-04] MEDS: ASPIRIN CHEW 81 MG TABLET PO SCH (09:41)
[2018-10-04] MEDS: FLUCONAZOLE 200 MG TABLET PO SCH (09:44)
[2018-10-04] MEDS: Nintedanib Esylate [Ofev] 150 MG PO SCH (09:48)
[2018-10-04] MEDS: FLECAINIDE 100 MG TABLET PO SCH ×2 (09:49→21:20)
[2018-10-04] MEDS: GENTAMICIN INJ 500 MG in SODIUM CHLORIDE 0.9% 100 ML IV SCH (16:46)
[2018-10-04] MEDS: [UNRECOGNIZED DRUG - OTHER] IV PRN (18:51)
[2018-10-05] MEDS: MEROPENEM 500 MG in SODIUM CHLORIDE 0.9% 100 ML IV SCH ×4 (00:01→23:48)
[2018-10-05] MEDS: INSULIN REGULAR 100 UNIT/ML SUBCUT SCH ×5 (00:02→23:41)
[2018-10-05] MEDS: METOCLOPRAMIDE 10 MG/2 ML VIAL IV SCH ×5 (00:03→23:49)
[2018-10-05] MEDS: ALBUTEROL/IPRATROPIUM 3 ML NEB RESP TX SCH ×7 (00:15→23:17)
[2018-10-05 04:12] LABS: ABG HCO3 32.1 MMOL/L (20-26); ABG Oxygen Saturation 98.4 % (95-100); ABG PCO2 48.4 MM HG (35-48); ABG PO2 123.3 MM HG (80-95); ABG TCO2 33.6 MMOL/L (23-27); Allen Test Positive; Pt O2 Delivery Device Ventilator
[2018-10-05 04:50] LABS: Calcium 8.1 MG/DL (8.5-10.1); Osmolality,Calculated 294.4 MOS/KG (273-304)
[2018-10-05 04:51] LABS: Eosinophils % 0.1 % (0.00-10.9); Hemoglobin 10.9 GM/DL (14.0-18.0); Immature Granulocytes % 0.5 %; Immature Granulocytes Absolute 0.04 #; Lymphocytes # 0.2 10*3/uL (1.4-4.0); Lymphocytes % 2.8 % (21.2-54.2); Mean Corpuscular HGB Conc 31.1 GM/DL (32-36); Mean Corpuscular Volume 96.2 FL (87-102); Mean Platelet Volume 11.4 FL (9.6-12.0); Neutrophils % 92.6 % (38.7-73.9); Platelet Count 145 T/CUMM (130-400); Red Blood Count 3.64 MC/CUMM (3.8-5.5); Red Cell Distribution Width 14.2 % (9.3-17.3); White Blood Count 8.6 T/CUMM (4-12)
[2018-10-05] MEDS: PROPOFOL 1,000 MG/100 ML BOTTLE IV SCH ×2 (06:00→15:45)
[2018-10-05] MEDS: ACYCLOVIR 5% OINT 5 GM TUBE TOP SCH ×5 (06:00→21:02)
[2018-10-05 07:02] LABS: Band Neutrophils 1 % (0-10); Hypochromasia 1+; Lymphocytes 2 % (20-55); Ovalocytes Slight; Platelet Estimate Adequate; Segmented Neutrophils 92 % (50-85); Total Cells Counted 100
[2018-10-05] MEDS: DORNASE ALFA 2.5 MG/2.5 ML VIAL RESP TX SCH ×2 (07:42→19:20)
[2018-10-05] MEDS: methylPREDNISolone SOD SUC 125 MG/2 ML VIAL IV SCH ×2 (08:39→20:56)
[2018-10-05] MEDS: PANTOPRAZOLE 40 MG VIAL IV SCH (08:41)
[2018-10-05] MEDS: APIXABAN 5 MG TABLET PO SCH ×2 (08:44→20:57)
[2018-10-05] MEDS: DILTIAZEM 30 MG TABLET PO SCH ×4 (08:44→20:57)
[2018-10-05] MEDS: ASPIRIN CHEW 81 MG TABLET PO SCH (08:44)
[2018-10-05] MEDS: valACYclovir 500 MG TABLET PO SCH ×2 (08:44→20:57)
[2018-10-05] MEDS: FOLIC ACID 0.4 MG TABLET PO SCH (08:44)
[2018-10-05] MEDS: ROSUVASTATIN 20 MG TABLET PO SCH (08:44)
[2018-10-05] MEDS: Nintedanib Esylate [Ofev] 150 MG PO SCH (08:45)
[2018-10-05] MEDS: FLECAINIDE 100 MG TABLET PO SCH ×2 (08:46→20:57)
[2018-10-05] MEDS: CLORAZEPATE 3.75 MG TABLET PO SCH ×3 (08:47→20:57)
[2018-10-05] MEDS: GENTAMICIN INJ 500 MG in SODIUM CHLORIDE 0.9% 100 ML IV SCH (16:08)
[2018-10-06] MEDS: PROPOFOL 1,000 MG/100 ML BOTTLE IV SCH ×4 (02:34→21:51)
[2018-10-06] MEDS: [UNRECOGNIZED DRUG - OTHER] IV PRN (02:36)
[2018-10-06] MEDS: ALBUTEROL/IPRATROPIUM 3 ML NEB RESP TX SCH ×6 (03:29→23:50)
[2018-10-06 03:36] LABS: ABG Base Excess 8.5 MMOL/L (-2.5-2.5); ABG HCO3 33.5 MMOL/L (20-26); ABG Oxygen Saturation 98.8 % (95-100); ABG PCO2 48.4 MM HG (35-48); ABG PH 7.458 (7.35-7.45); ABG PO2 159.6 MM HG (80-95); Allen Test Positive; Pt O2 Delivery Device Ventilator
[2018-10-06] MEDS: INSULIN REGULAR 100 UNIT/ML SUBCUT SCH ×3 (05:30→18:29)
[2018-10-06 05:31] LABS: Basophils % 0.2 % (0.0-0.8); Hematocrit 36.1 VOL% (42.0-52.0); Hemoglobin 11.3 GM/DL (14.0-18.0); Immature Granulocytes % 0.2 %; Immature Granulocytes Absolute 0.02 #; Lymphocytes # 0.2 10*3/uL (1.4-4.0); Lymphocytes % 2.3 % (21.2-54.2); Mean Corpuscular HGB Conc 31.3 GM/DL (32-36); Mean Corpuscular Volume 96.8 FL (87-102); Mean Platelet Volume 11.7 FL (9.6-12.0); Monocytes % 5.1 % (1.7-12.7); NRBC # 0.02 10*3/uL; Neutrophils % 92.2 % (38.7-73.9); Platelet Count 138 T/CUMM (130-400); Red Blood Count 3.73 MC/CUMM (3.8-5.5); Red Cell Distribution Width 14.2 % (9.3-17.3); White Blood Count 8.8 T/CUMM (4-12)
[2018-10-06] MEDS: METOCLOPRAMIDE 10 MG/2 ML VIAL IV SCH ×3 (05:33→18:30)
[2018-10-06] MEDS: ACYCLOVIR 5% OINT 5 GM TUBE TOP SCH ×5 (05:33→23:05)
[2018-10-06 06:03] LABS: Calcium 8.1 MG/DL (8.5-10.1); Osmolality,Calculated 289.5 MOS/KG (273-304)
[2018-10-06 06:26] LABS: Band Neutrophils 3 % (0-10); Lymphocytes 4 % (20-55); Segmented Neutrophils 90 % (50-85); Total Cells Counted 100
[2018-10-06 06:27] LABS: Anisocytosis 1+; Hypochromasia 1+; Platelet Estimate Adequate
[2018-10-06] MEDS: MEROPENEM 500 MG in SODIUM CHLORIDE 0.9% 100 ML IV SCH ×2 (06:47→16:12)
[2018-10-06] MEDS: DORNASE ALFA 2.5 MG/2.5 ML VIAL RESP TX SCH ×3 (07:32→20:30)
[2018-10-06] MEDS: CLORAZEPATE 3.75 MG TABLET PO SCH ×3 (09:00→20:28)
[2018-10-06] MEDS: ROSUVASTATIN 20 MG TABLET PO SCH (11:04)
[2018-10-06] MEDS: FOLIC ACID 0.4 MG TABLET PO SCH (11:04)
[2018-10-06] MEDS: DILTIAZEM 30 MG TABLET PO SCH ×4 (11:05→20:27)
[2018-10-06] MEDS: valACYclovir 500 MG TABLET PO SCH ×2 (11:05→20:30)
[2018-10-06] MEDS: ASPIRIN CHEW 81 MG TABLET PO SCH (11:05)
[2018-10-06] MEDS: APIXABAN 5 MG TABLET PO SCH ×2 (11:05→20:28)
[2018-10-06] MEDS: methylPREDNISolone SOD SUC 125 MG/2 ML VIAL IV SCH ×2 (11:06→20:31)
[2018-10-06] MEDS: Nintedanib Esylate [Ofev] 150 MG PO SCH (11:07)
[2018-10-06] MEDS: PANTOPRAZOLE 40 MG VIAL IV SCH (11:09)
[2018-10-06] MEDS: FLECAINIDE 100 MG TABLET PO SCH ×2 (11:20→20:28)
[2018-10-07] MEDS: INSULIN REGULAR 100 UNIT/ML SUBCUT SCH ×4 (01:03→18:03)
[2018-10-07] MEDS: METOCLOPRAMIDE 10 MG/2 ML VIAL IV SCH ×4 (01:04→17:27)
[2018-10-07] MEDS: MEROPENEM 500 MG in SODIUM CHLORIDE 0.9% 100 ML IV SCH ×3 (01:07→17:18)
[2018-10-07] MEDS: ALBUTEROL/IPRATROPIUM 3 ML NEB RESP TX SCH ×6 (03:43→22:12)
[2018-10-07 04:46] LABS: Basophils % 0.2 % (0.0-0.8); Eosinophils % 0.1 % (0.00-10.9); Hematocrit 34.4 VOL% (42.0-52.0); Hemoglobin 11.2 GM/DL (14.0-18.0); Immature Granulocytes % 0.3 %; Immature Granulocytes Absolute 0.03 #; Lymphocytes # 0.2 10*3/uL (1.4-4.0); Lymphocytes % 2.5 % (21.2-54.2); Mean Corpuscular HGB Conc 32.6 GM/DL (32-36); Mean Corpuscular Volume 94.5 FL (87-102); Monocytes % 3.2 % (1.7-12.7); Neutrophils % 93.7 % (38.7-73.9); Platelet Count 142 T/CUMM (130-400); Red Blood Count 3.64 MC/CUMM (3.8-5.5); Red Cell Distribution Width 13.9 % (9.3-17.3); White Blood Count 9.8 T/CUMM (4-12)
[2018-10-07 05:22] LABS: Calcium 8.2 MG/DL (8.5-10.1); Osmolality,Calculated 289.8 MOS/KG (273-304)
[2018-10-07 05:38] LABS: ABG Base Excess 7.1 MMOL/L (-2.5-2.5); ABG HCO3 30.9 MMOL/L (20-26); ABG Oxygen Saturation 99.4 % (95-100); ABG PCO2 51.3 MM HG (35-48); ABG PH 7.421 (7.35-7.45); ABG TCO2 28.2 MMOL/L (23-27); Allen Test Positive; Pt O2 Delivery Device Ventilator
[2018-10-07 05:47] LABS: Band Neutrophils 4 % (0-10); Hypochromasia 1+; Lymphocytes 2 % (20-55); Macrocytosis Slight; Platelet Estimate Adequate; Segmented Neutrophils 91 % (50-85); Total Cells Counted 100
[2018-10-07] MEDS: GENTAMICIN INJ 500 MG in SODIUM CHLORIDE 0.9% 100 ML IV SCH (05:53)
[2018-10-07] MEDS: PROPOFOL 1,000 MG/100 ML BOTTLE IV SCH ×2 (06:27→14:21)
[2018-10-07] MEDS: ACYCLOVIR 5% OINT 5 GM TUBE TOP SCH ×5 (06:39→22:07)
[2018-10-07] MEDS: DORNASE ALFA 2.5 MG/2.5 ML VIAL RESP TX SCH ×2 (07:19→18:10)
[2018-10-07] MEDS: valACYclovir 500 MG TABLET PO SCH ×2 (08:53→21:59)
[2018-10-07] MEDS: FOLIC ACID 0.4 MG TABLET PO SCH (08:53)
[2018-10-07] MEDS: DILTIAZEM 30 MG TABLET PO SCH ×4 (08:53→21:59)
[2018-10-07] MEDS: ROSUVASTATIN 20 MG TABLET PO SCH (08:53)
[2018-10-07] MEDS: ASPIRIN CHEW 81 MG TABLET PO SCH (08:53)
[2018-10-07] MEDS: Nintedanib Esylate [Ofev] 150 MG PO SCH (08:53)
[2018-10-07] MEDS: CLORAZEPATE 3.75 MG TABLET PO SCH ×2 (08:53→18:57)
[2018-10-07] MEDS: APIXABAN 5 MG TABLET PO SCH ×2 (08:53→22:00)
[2018-10-07] MEDS: methylPREDNISolone SOD SUC 125 MG/2 ML VIAL IV SCH ×2 (08:54→22:00)
[2018-10-07] MEDS: PANTOPRAZOLE 40 MG VIAL IV SCH (08:54)
[2018-10-07] MEDS: FLECAINIDE 100 MG TABLET PO SCH ×2 (08:58→21:59)
[2018-10-07] MEDS: [UNRECOGNIZED DRUG - OTHER] IV PRN (13:00)
[2018-10-07] MEDS: CLORAZEPATE 7.5 MG TABLET PO SCH ×2 (17:20→21:59)
[2018-10-08] MEDS: MEROPENEM 500 MG in SODIUM CHLORIDE 0.9% 100 ML IV SCH ×3 (01:18→15:20)
[2018-10-08] MEDS: METOCLOPRAMIDE 10 MG/2 ML VIAL IV SCH ×4 (01:18→18:21)
[2018-10-08] MEDS: INSULIN REGULAR 100 UNIT/ML SUBCUT SCH ×4 (01:21→18:10)
[2018-10-08] MEDS: PROPOFOL 1,000 MG/100 ML BOTTLE IV SCH ×4 (02:05→23:00)
[2018-10-08] MEDS: ALBUTEROL/IPRATROPIUM 3 ML NEB RESP TX SCH ×6 (04:12→23:45)
[2018-10-08 04:19] LABS: Partial Thromboplastin Time 26.1 SECS (0-40)
[2018-10-08 04:31] LABS: Eosinophils % 0.1 % (0.00-10.9); Hematocrit 35.1 VOL% (42.0-52.0); Hemoglobin 11.1 GM/DL (14.0-18.0); Immature Granulocytes % 0.4 %; Immature Granulocytes Absolute 0.04 #; Lymphocytes # 0.3 10*3/uL (1.4-4.0); Lymphocytes % 2.7 % (21.2-54.2); Mean Corpuscular HGB Conc 31.6 GM/DL (32-36); Mean Corpuscular Volume 96.4 FL (87-102); Mean Platelet Volume 12.1 FL (9.6-12.0); Monocytes % 4.7 % (1.7-12.7); Neutrophils % 92.1 % (38.7-73.9); Platelet Count 137 T/CUMM (130-400); Red Blood Count 3.64 MC/CUMM (3.8-5.5); Red Cell Distribution Width 13.8 % (9.3-17.3)
[2018-10-08 04:35] LABS: ABG Base Excess 6.6 MMOL/L (-2.5-2.5); ABG Oxygen Saturation 98.9 % (95-100); ABG PCO2 49.5 MM HG (35-48); ABG PH 7.428 (7.35-7.45); ABG PO2 186.6 MM HG (80-95); ABG TCO2 33.5 MMOL/L (23-27); Allen Test Positive; Pt O2 Delivery Device Ventilator
[2018-10-08 04:46] LABS: Calcium 8.2 MG/DL (8.5-10.1); Osmolality,Calculated 288.8 MOS/KG (273-304)
[2018-10-08 05:21] LABS: Band Neutrophils 2 % (0-10); Lymphocytes 3 % (20-55); Platelet Estimate Decreased; Segmented Neutrophils 93 % (50-85); Total Cells Counted 100
[2018-10-08] MEDS: ACYCLOVIR 5% OINT 5 GM TUBE TOP SCH ×5 (06:42→21:59)
[2018-10-08] MEDS: DORNASE ALFA 2.5 MG/2.5 ML VIAL RESP TX SCH ×2 (06:56→19:30)
[2018-10-08] MEDS: PANTOPRAZOLE 40 MG VIAL IV SCH (09:48)
[2018-10-08] MEDS: methylPREDNISolone SOD SUC 125 MG/2 ML VIAL IV SCH ×2 (09:48→21:57)
[2018-10-08] MEDS: APIXABAN 5 MG TABLET PO SCH ×2 (09:53→21:57)
[2018-10-08] MEDS: DILTIAZEM 30 MG TABLET PO SCH ×4 (09:53→18:20)
[2018-10-08] MEDS: CLORAZEPATE 7.5 MG TABLET PO SCH ×3 (09:53→21:57)
[2018-10-08] MEDS: FOLIC ACID 0.4 MG TABLET PO SCH (09:53)
[2018-10-08] MEDS: ROSUVASTATIN 20 MG TABLET PO SCH (09:53)
[2018-10-08] MEDS: ASPIRIN CHEW 81 MG TABLET PO SCH (09:53)
[2018-10-08] MEDS: Nintedanib Esylate [Ofev] 150 MG PO SCH (09:54)
[2018-10-08] MEDS: valACYclovir 500 MG TABLET PO SCH ×2 (09:54→21:57)
[2018-10-08] MEDS: FLECAINIDE 100 MG TABLET PO SCH ×2 (10:22→21:57)
[2018-10-08] MEDS: GENTAMICIN INJ 500 MG in SODIUM CHLORIDE 0.9% 100 ML IV SCH (18:20)
[2018-10-08] MEDS: [UNRECOGNIZED DRUG - OTHER] IV PRN (20:55)
[2018-10-09] MEDS: DILTIAZEM 30 MG TABLET PO SCH ×5 (00:01→23:49)
[2018-10-09] MEDS: METOCLOPRAMIDE 10 MG/2 ML VIAL IV SCH ×5 (01:12→23:50)
[2018-10-09] MEDS: MEROPENEM 500 MG in SODIUM CHLORIDE 0.9% 100 ML IV SCH ×4 (01:13→23:49)
[2018-10-09] MEDS: INSULIN REGULAR 100 UNIT/ML SUBCUT SCH ×5 (01:13→23:59)
[2018-10-09] MEDS: ALBUTEROL/IPRATROPIUM 3 ML NEB RESP TX SCH ×6 (03:44→22:33)
[2018-10-09 04:22] LABS: Calcium 7.7 MG/DL (8.5-10.1)
[2018-10-09 04:27] LABS: ABG Base Excess 6.1 MMOL/L (-2.5-2.5); ABG HCO3 29.9 MMOL/L (20-26); ABG Oxygen Saturation 99.6 % (95-100); ABG PCO2 44.9 MM HG (35-48); ABG PH 7.446 (7.35-7.45); ABG TCO2 27.8 MMOL/L (23-27); Allen Test Positive; Pt O2 Delivery Device Ventilator
[2018-10-09] MEDS: PROPOFOL 1,000 MG/100 ML BOTTLE IV SCH ×3 (05:30→19:51)
[2018-10-09 05:39] LABS: Basophils % 0.1 % (0.0-0.8); Hematocrit 33.1 VOL% (42.0-52.0); Hemoglobin 10.5 GM/DL (14.0-18.0); Immature Granulocytes % 0.6 %; Immature Granulocytes Absolute 0.06 #; Lymphocytes # 0.2 10*3/uL (1.4-4.0); Lymphocytes % 2.5 % (21.2-54.2); Mean Corpuscular HGB Conc 31.7 GM/DL (32-36); Mean Corpuscular Volume 95.7 FL (87-102); Mean Platelet Volume 12.2 FL (9.6-12.0); Monocytes % 4.2 % (1.7-12.7); Neutrophils % 92.6 % (38.7-73.9); Platelet Count 138 T/CUMM (130-400); Red Blood Count 3.46 MC/CUMM (3.8-5.5); Red Cell Distribution Width 13.7 % (9.3-17.3); White Blood Count 9.6 T/CUMM (4-12)
[2018-10-09 06:10] LABS: Lymphocytes 2 % (20-55); Segmented Neutrophils 96 % (50-85); Total Cells Counted 100
[2018-10-09 06:11] LABS: Platelet Estimate Decreased
[2018-10-09] MEDS: ACYCLOVIR 5% OINT 5 GM TUBE TOP SCH ×5 (06:43→21:37)
[2018-10-09] MEDS: DORNASE ALFA 2.5 MG/2.5 ML VIAL RESP TX SCH ×2 (06:54→18:57)
[2018-10-09] MEDS: methylPREDNISolone SOD SUC 125 MG/2 ML VIAL IV SCH ×2 (09:45→21:32)
[2018-10-09] MEDS: PANTOPRAZOLE 40 MG VIAL IV SCH (09:45)
[2018-10-09] MEDS: FLECAINIDE 100 MG TABLET PO SCH ×2 (09:50→21:32)
[2018-10-09] MEDS: CLORAZEPATE 7.5 MG TABLET PO SCH ×3 (09:50→21:31)
[2018-10-09] MEDS: ROSUVASTATIN 20 MG TABLET PO SCH (09:50)
[2018-10-09] MEDS: ASPIRIN CHEW 81 MG TABLET PO SCH (09:51)
[2018-10-09] MEDS: APIXABAN 5 MG TABLET PO SCH ×2 (09:51→21:32)
[2018-10-09] MEDS: Nintedanib Esylate [Ofev] 150 MG PO SCH (09:52)
[2018-10-09] MEDS: valACYclovir 500 MG TABLET PO SCH ×2 (09:59→21:32)
[2018-10-09] MEDS: FOLIC ACID 0.4 MG TABLET PO SCH (09:59)
[2018-10-10] MEDS: PROPOFOL 1,000 MG/100 ML BOTTLE IV SCH ×3 (00:36→19:16)
[2018-10-10] MEDS: ALBUTEROL/IPRATROPIUM 3 ML NEB RESP TX SCH ×6 (02:04→23:26)
[2018-10-10] MEDS: [UNRECOGNIZED DRUG - OTHER] IV PRN (02:20)
[2018-10-10 03:01] LABS: ABG Base Excess 7.5 MMOL/L (-2.5-2.5); ABG HCO3 31.3 MMOL/L (20-26); ABG Oxygen Saturation 98.9 % (95-100); ABG PCO2 43.2 MM HG (35-48); ABG PH 7.476 (7.35-7.45); ABG TCO2 28.8 MMOL/L (23-27)
[2018-10-10 03:02] LABS: Allen Test Positive; Pt O2 Delivery Device Ventilator
[2018-10-10 05:16] LABS: Calcium 7.7 MG/DL (8.5-10.1); Osmolality,Calculated 287.7 MOS/KG (273-304)
[2018-10-10] MEDS: DILTIAZEM 30 MG TABLET PO SCH ×3 (06:17→18:04)
[2018-10-10] MEDS: GENTAMICIN INJ 500 MG in SODIUM CHLORIDE 0.9% 100 ML IV SCH (06:17)
[2018-10-10] MEDS: INSULIN REGULAR 100 UNIT/ML SUBCUT SCH ×3 (06:17→17:50)
[2018-10-10] MEDS: METOCLOPRAMIDE 10 MG/2 ML VIAL IV SCH ×3 (06:18→18:00)
[2018-10-10] MEDS: ACYCLOVIR 5% OINT 5 GM TUBE TOP SCH ×5 (06:18→22:09)
[2018-10-10] MEDS: MEROPENEM 500 MG in SODIUM CHLORIDE 0.9% 100 ML IV SCH ×3 (06:34→22:50)
[2018-10-10] MEDS: DORNASE ALFA 2.5 MG/2.5 ML VIAL RESP TX SCH ×2 (07:03→19:28)
[2018-10-10] MEDS: PANTOPRAZOLE 40 MG VIAL IV SCH (09:06)
[2018-10-10] MEDS: methylPREDNISolone SOD SUC 125 MG/2 ML VIAL IV SCH ×2 (09:06→22:08)
[2018-10-10] MEDS: ASPIRIN CHEW 81 MG TABLET PO SCH (09:11)
[2018-10-10] MEDS: ROSUVASTATIN 20 MG TABLET PO SCH (09:11)
[2018-10-10] MEDS: FOLIC ACID 0.4 MG TABLET PO SCH (09:11)
[2018-10-10] MEDS: FLECAINIDE 100 MG TABLET PO SCH ×2 (09:12→22:09)
[2018-10-10] MEDS: CLORAZEPATE 7.5 MG TABLET PO SCH ×3 (09:12→22:09)
[2018-10-10] MEDS: valACYclovir 500 MG TABLET PO SCH ×2 (09:13→22:08)
[2018-10-10] MEDS: APIXABAN 5 MG TABLET PO SCH ×2 (09:13→22:09)
[2018-10-10] MEDS: Nintedanib Esylate [Ofev] 150 MG PO SCH (09:13)
[2018-10-10] MEDS: POLYETHYLENE GLYCOL POWDER 17 GM PACK PO PRN (10:06)
[2018-10-11] MEDS: METOCLOPRAMIDE 10 MG/2 ML VIAL IV SCH ×4 (01:10→17:32)
[2018-10-11] MEDS: INSULIN REGULAR 100 UNIT/ML SUBCUT SCH ×4 (01:10→19:20)
[2018-10-11] MEDS: DILTIAZEM 30 MG TABLET PO SCH ×2 (01:10→06:57)
[2018-10-11] MEDS: PROPOFOL 1,000 MG/100 ML BOTTLE IV SCH ×2 (01:15→07:04)
[2018-10-11 02:59] LABS: Allen Test Positive; Pt O2 Delivery Device Ventilator
[2018-10-11 03:00] LABS: ABG Base Excess 8.1 MMOL/L (-2.5-2.5); ABG HCO3 31.9 MMOL/L (20-26); ABG Oxygen Saturation 98.4 % (95-100); ABG PCO2 41.7 MM HG (35-48); ABG PH 7.502 (7.35-7.45); ABG PO2 135.6 MM HG (80-95); ABG TCO2 33.2 MMOL/L (23-27)
[2018-10-11] MEDS: ALBUTEROL/IPRATROPIUM 3 ML NEB RESP TX SCH ×5 (03:08→19:29)
[2018-10-11 04:40] LABS: Basophils % 0.1 % (0.0-0.8); Hemoglobin 9.8 GM/DL (14.0-18.0); Immature Granulocytes % 0.4 %; Immature Granulocytes Absolute 0.05 #; Lymphocytes # 0.3 10*3/uL (1.4-4.0); Lymphocytes % 2.3 % (21.2-54.2); Mean Corpuscular HGB Conc 32.7 GM/DL (32-36); Mean Corpuscular Volume 92.9 FL (87-102); Mean Platelet Volume 12.5 FL (9.6-12.0); Monocytes % 2.5 % (1.7-12.7); Neutrophils % 94.7 % (38.7-73.9); Platelet Count 140 T/CUMM (130-400); Red Blood Count 3.23 MC/CUMM (3.8-5.5); Red Cell Distribution Width 13.8 % (9.3-17.3); White Blood Count 12.3 T/CUMM (4-12)
[2018-10-11 05:07] LABS: Calcium 7.6 MG/DL (8.5-10.1); Osmolality,Calculated 287.7 MOS/KG (273-304)
[2018-10-11 05:16] LABS: Lymphocytes 3 % (20-55); Metamyelocytes 1 %; Platelet Estimate Adequate; Polychromasia Few; Segmented Neutrophils 94 % (50-85); Total Cells Counted 100
[2018-10-11] MEDS: ACYCLOVIR 5% OINT 5 GM TUBE TOP SCH ×2 (06:58→10:04)
[2018-10-11] MEDS: DORNASE ALFA 2.5 MG/2.5 ML VIAL RESP TX SCH ×2 (07:44→19:35)
[2018-10-11] MEDS: PANTOPRAZOLE 40 MG VIAL IV SCH (08:22)
[2018-10-11] MEDS: POLYETHYLENE GLYCOL POWDER 17 GM PACK PO PRN (08:22)
[2018-10-11] MEDS: MEROPENEM 500 MG in SODIUM CHLORIDE 0.9% 100 ML IV SCH ×2 (08:22→15:49)
[2018-10-11] MEDS: methylPREDNISolone SOD SUC 125 MG/2 ML VIAL IV SCH ×2 (08:23→20:00)
[2018-10-11] MEDS: CLORAZEPATE 7.5 MG TABLET PO SCH ×2 (08:23→15:33)
[2018-10-11] MEDS: valACYclovir 500 MG TABLET PO SCH (08:23)
[2018-10-11] MEDS: ASPIRIN CHEW 81 MG TABLET PO SCH (08:23)
[2018-10-11] MEDS: FOLIC ACID 0.4 MG TABLET PO SCH (08:24)
[2018-10-11] MEDS: APIXABAN 5 MG TABLET PO SCH (08:24)
[2018-10-11] MEDS: ROSUVASTATIN 20 MG TABLET PO SCH (08:24)
[2018-10-11] MEDS: FLECAINIDE 100 MG TABLET PO SCH (09:21)
[2018-10-11] MEDS: Nintedanib Esylate [Ofev] 150 MG PO SCH (09:21)
[2018-10-11] MEDS ORDERED: MORPHINE 4 MG/1 ML VIAL IV PRN (12:25)
[2018-10-11] MEDS ORDERED: DILTIAZEM CD 120 MG CAPSULE PO SCH (12:30)
[2018-10-11] MEDS ORDERED: METHYLNALTREXONE 12 MG/0.6 ML VIAL SUBCUT ONE (12:30)
[2018-10-11] MEDS: MORPHINE 4 MG/1 ML VIAL IV PRN ×3 (12:41→20:02)
[2018-10-11] MEDS: DEXTROSE 5% NACL 0.9% 1,000 ML IV SCH (15:49)
[2018-10-11] MEDS: LORazepam 2 MG/1 ML VIAL IV PRN ×3 (15:57→21:24)
[2018-10-11] MEDS ORDERED: DOCUSATE SODIUM 100 MG CAPSULE PO SCH (21:00)
[2018-10-11] MEDS ORDERED: HYDROmorphone 2 MG/1 ML VIAL ONE (21:58)
[2018-10-11] MEDS: HYDROmorphone 2 MG/1 ML VIAL IV PRN (22:00)
[2018-10-12] MEDS: ALBUTEROL/IPRATROPIUM 3 ML NEB RESP TX SCH ×8 (00:22→23:30)
[2018-10-12] MEDS: METOCLOPRAMIDE 10 MG/2 ML VIAL IV SCH (00:38)
[2018-10-12] MEDS ORDERED: GENTAMICIN INJ 500 MG in SODIUM CHLORIDE 0.9% 100 ML IV SCH (04:00)
[2018-10-12] MEDS: HYDROmorphone 2 MG/1 ML VIAL IV PRN ×6 (04:15→23:24)
[2018-10-12] MEDS: MEROPENEM 500 MG in SODIUM CHLORIDE 0.9% 100 ML IV SCH ×2 (07:33)
[2018-10-12] MEDS: DORNASE ALFA 2.5 MG/2.5 ML VIAL RESP TX SCH ×2 (07:40→19:16)
[2018-10-12] MEDS ORDERED: POLYETHYLENE GLYCOL POWDER 17 GM PACK PO SCH (09:00)
[2018-10-12] MEDS: Nintedanib Esylate [Ofev] 150 MG PO SCH (09:03)
[2018-10-12] MEDS: LORazepam 2 MG/1 ML VIAL IV PRN ×3 (09:04→19:50)
[2018-10-12] MEDS: PANTOPRAZOLE 40 MG VIAL IV SCH (09:04)
[2018-10-12] MEDS: methylPREDNISolone SOD SUC 125 MG/2 ML VIAL IV SCH (09:04)
[2018-10-12] MEDS: DEXTROSE 5% NACL 0.9% 1,000 ML IV SCH (12:38)
[2018-10-12] MEDS: methylPREDNISolone SOD SUC 40 MG/1 ML VIAL IV SCH (20:40)
[2018-10-13] MEDS: LORazepam 2 MG/1 ML VIAL IV PRN ×6 (01:44→22:07)
[2018-10-13] MEDS: HYDROmorphone 2 MG/1 ML VIAL IV PRN ×9 (01:46→21:47)
[2018-10-13] MEDS: ALBUTEROL/IPRATROPIUM 3 ML NEB RESP TX SCH ×4 (03:00→19:13)
[2018-10-13] MEDS: DORNASE ALFA 2.5 MG/2.5 ML VIAL RESP TX SCH ×2 (07:17→19:19)
[2018-10-13] MEDS: methylPREDNISolone SOD SUC 40 MG/1 ML VIAL IV SCH ×2 (09:06→21:49)
[2018-10-13] MEDS: Nintedanib Esylate [Ofev] 150 MG PO SCH (09:15)
[2018-10-13] MEDS ORDERED: ALBUTEROL/IPRATROPIUM 3 ML NEB RESP TX PRN (09:16)
[2018-10-14] MEDS: HYDROmorphone 2 MG/1 ML VIAL IV PRN ×8 (00:09→22:13)
[2018-10-14] MEDS: LORazepam 2 MG/1 ML VIAL IV PRN ×8 (00:13→22:16)
[2018-10-14] MEDS: ALBUTEROL/IPRATROPIUM 3 ML NEB RESP TX SCH ×4 (01:05→20:06)
[2018-10-14] MEDS: DORNASE ALFA 2.5 MG/2.5 ML VIAL RESP TX SCH ×2 (07:09→20:06)
[2018-10-14] MEDS: Nintedanib Esylate [Ofev] 150 MG PO SCH (08:13)
[2018-10-14] MEDS: methylPREDNISolone SOD SUC 40 MG/1 ML VIAL IV SCH ×2 (10:03→20:50)
[2018-10-15] MEDS: ALBUTEROL/IPRATROPIUM 3 ML NEB RESP TX SCH ×2 (00:20→07:49)
[2018-10-15] MEDS: LORazepam 2 MG/1 ML VIAL IV PRN ×3 (01:19→06:18)
[2018-10-15] MEDS: HYDROmorphone 2 MG/1 ML VIAL IV PRN ×3 (01:21→06:15)
[2018-10-15 05:35] VITALS: BP 85/69
[2018-10-15] MEDS: DORNASE ALFA 2.5 MG/2.5 ML VIAL RESP TX SCH (07:52)
== END 2018-10-15 07:56 | disposition expired | DRG 207 ==
LOC: N.ED 10:19 → SUATTDRO 14:01 → N.EDINP 14:01 → N.4E 20:59 → N.CC 09-14 22:55 → N.ICU 09-18 19:31 → N.4E 10-12 13:24
PROVIDERS: ADMIT Internal Medicine Cardiovascular Disease; ATTEND Internal Medicine